=== PATIENT | male | born 1945 | race Hispanic/Latino ===

== ENCOUNTER → 2018-02-11 | Day surgery (SDC) | payer MEDICARE ==
[2018-02-10 16:11] LABS: BASOPHILS % 0.3 % (0.0-1.0); EOSINOPHILS # (AUTO) 0.3 (0.0-0.4); EOSINOPHILS % 5.4 % (0.0-6.0); HEMATOCRIT 26.5 % (38.2-49.6); LYMPHOCYTES # (AUTO) 1.2 (1.0-3.2); MEAN CORPUSCULAR HEMOGLOBIN 25.5 pg (28-32); MEAN CORPUSCULAR HGB CONC 30.2 g/dL (31-35); MEAN CORPUSCULAR VOLUME 84.4 fL (81-99); MONOCYTES # (AUTO) 0.5 (0.2-0.8); MONOCYTES % 8.3 % (4.4-11.3); NEUTROPHILS % 65.5 % (38.7-80.0); PLATELET COUNT 313 x10e3/uL (140-360); RED BLOOD COUNT 3.14 x10e6/uL (4.3-5.7)
[2018-02-10 16:26] LABS: ANION GAP 11.8 mmol/L (8-16); BLOOD UREA NITROGEN 16 mg/dL (7-26); BUN/CREATININE RATIO 15 (6-25); CALCIUM 8.6 mg/dL (8.4-10.2); CARBON DIOXIDE 24 mmol/L (22-29); CHLORIDE 107 mmol/L (98-107); CREATININE, SERUM 1.07 mg/dL (0.72-1.25); EST GLOMERULAR FILTRATION RATE > 60 ML/MIN (60-); GLUCOSE 103 mg/dL (74-118); POTASSIUM 3.8 mmol/L (3.5-5.1); SODIUM 139 mmol/L (136-145)
[~2018-02-11] MED LIST: ASPIR 8181 MG PO; CEFAZOLIN SOD 2 GM/D5W 50ML 50 ML IV ONE; DEXAMETHASONE SOD PHOS INJ 4 MG/ML VIAL ONE; EPHEDRINE SULFATE INJ 50 MG/10 ML SYR ONE; FENTANYL CITRATE/PF 100MCG/2 ML INJ ONE; FERROUS SULFAT325 MG PO; HEPARIN SOD (PORCINE) 1000 UNIT/ML SDV ONE; IRON PO; LIDOCAINE HCL 2% LOCAL INJ 5 ML SDV VIAL INJ ONE; MIDAZOLAM HCL 2 MG/2 ML VIAL ONE; MULTI-VITAMIN1 EACH PO; ONDANSETRON HCL INJ 2 MG/ML VIAL ONE; PROPOFOL IV EMULSION 10 MG/ML 20 ML VIAL ONE; SEVOFLURANE INHAL SOLN 250 ML PEN BTL ONE; SODIUM CHLORIDE 0.9% 100 ML 100 ML ONE; ULTRAM 50MG50 MG PO
[2018-02-11 11:18] LABS: HEMATOCRIT 24.9 % (38.2-49.6); HEMOGLOBIN 7.4 g/dL (14.0-18.0)
--- NOTE | 2018-02-11 14:01 | Operative Report ---
DATE OF PROCEDURE: February 11, 2018 PREOPERATIVE DIAGNOSIS: Metastatic carcinoma of colon. POSTOPERATIVE DIAGNOSIS: Metastatic carcinoma of colon. OPERATIVE PROCEDURE: Placement of left subclavian vein subcutaneous venous access port. ADULT BASIC EDUCATION INSTRUCTOR: None. ANESTHESIA: General. INDICATIONS AND FINDINGS: The patient is a 72-year-old male with previous colon resection who is now found to have metastatic colon cancer. He is to be treated with chemotherapy. At surgery, there were no abnormalities in the area of the port placement. Blood aspirated freely from the ports at the end of the procedure. The tip of the catheter was seen to be in the superior vena cava. TECHNIQUE: After adequate general anesthesia, with the patient in the supine position, the subclavian areas were prepped and draped in sterile fashion with Brad solution. Left subclavian vein was aspirated. A J-wire was introduced. It passed easily without resistance. Position of the wire in the superior vena cava was confirmed with fluoroscopy. Incision was then made in the deltopectoral groove with the wire exiting through the wound. A subcutaneous pocket was created in the inferior portion of the wound. Peel-away introducing sheath and dilator were passed over the guidewire. The catheter, which had been flushed with heparinized saline, was passed through the sheath and positioned in the superior vena cava under fluoroscopy. The catheter was aspirated and found to aspirate blood freely. It was then flushed with heparinized saline. The catheter was connected to the subcutaneous port, which had also been flushed with heparinized saline. The port was placed into the subcutaneous pocket and held in the pocket with sutures of 2-0 Ethibond. The entire port and catheter were inspected with fluoroscopy. There were no kinks, and the catheter tip was seen to be in the superior vena cava. The wound was inspected for hemostasis, which was seen to be adequate. The wound was then closed with 3-0 Vicryl in the subcutaneous tissue and 4-0 Vicryl subcuticular to the skin. Dermabond was applied to the wound. The port was accessed percutaneously with a Bear needle and found to aspirate blood freely. It was flushed with heparinized saline, and the needle was removed. Sterile dressing was applied. Patient tolerated the procedure well. Estimated blood loss was less than 5 mL. There were no complications. All counts were correct. Patient was taken to the recovery room in satisfactory condition. Job#: [id number] MH
--- NOTE | 2018-02-11 14:06 | Diagnostic Imaging Report ---
PROCEDURE: A single AP view of the chest. COMPARISON: Patients [facility], DX, CHEST SINGLE (PORTABLE), 01/27/2018, 11:52. INDICATIONS: POST VENOUS ACCESS PORT PLACEMENT, LINE PLACEMENT FINDINGS: Lines/tubes: Left upper chest Port-A-Cath distal tip projecting in the proximal SVC. Lungs: The lungs are well inflated and grossly clear. There is no evidence of pneumonia or pulmonary edema. Pleura: There is no pleural effusion or pneumothorax. Heart and mediastinum: Stable mild enlargement of the cardiac silhouette. Pulmonary vasculature is normal. CABG changes. Bones: No acute bony abnormality. Midline sternotomy wires. The most superior wire is fractured. IMPRESSION: 1. status post left upper chest Port-A-Cath placement with distal tip projecting in the proximal SVC. 2. Stable mild enlargement of the cardiac silhouette, without acute cardiopulmonary abnormalities. Elvis Valle M.D. Dictated by: Elvis Valle M.D. on 02/11/2018 at 14:11 Electronically approved by: Elvis Valle M.D. on 02/11/2018 at 14:11
--- NOTE | 2018-02-17 19:19 | Discharge Summary ---
PRINCIPAL DIAGNOSES 1. Acute kidney injury in setting of chronic kidney disease. 2. Elevated troponin. 3. Abnormal stress test. 4. Low vitamin B12. 5. Gastrointestinal bleed. 6. Coronary artery disease with history of coronary artery bypass graft. 7. Diabetes mellitus type 2. 8. Cigarette abuse. 9. Partial bowel obstruction. 10. Colon wall thickening, findings suggestive metastatic disease. SECONDARY DIAGNOSIS: Coronary artery disease. CHIEF COMPLAINT: Dizziness, lightheadedness, and abnormal labs. HISTORY OF PRESENT ILLNESS: This is a 72-year-old man with dizziness, lightheadedness and abnormal labs. Please refer to the H\T\P for further details. HOSPITAL COURSE: The patient found to have severe anemia with chronic findings and required blood cell transfusion. He had acute kidney injury in the setting of chronic kidney disease. He had elevated troponin and abnormal stress test. The patient received medication and medical management. He had low vitamin B12 and GI bleed. He has coronary artery disease with a history of bypass. He has diabetes mellitus type 2. He was managed with a diabetic diet. The patient had cigarette abuse and was counseled on cessation. He had partial bowel obstruction with chronic wall thickening with findings suggestive of metastatic disease. The patient will follow up with oncologist as an outpatient. The patient also underwent cardiac catheterization. No obvious irregularities noted in the vessels; however, there was no intervention at that time, recommended for medical management. DISCHARGE MEDICATIONS: Per electronic medical records. FOLLOWUP INSTRUCTIONS: Follow up with primary care physician in one week and follow up with oncology in one week. Follow up with cardiology in two weeks. YUE FOURNIER MD Job#: [id number]
== END | disposition home or self-care (01) ==
LOC: OR 10:28
PROVIDERS: ATTEND Surgery
DX: C18.9 Malignant neoplasm of colon, unspecified (principal); C79.9 Secondary malignant neoplasm of unspecified site; I25.810 Atherosclerosis of coronary artery bypass graft(s) without angina pectoris; N17.9 Acute kidney failure, unspecified; I25.2 Old myocardial infarction; D64.9 Anemia, unspecified; E11.22 Type 2 diabetes mellitus with diabetic chronic kidney disease; N18.9 Chronic kidney disease, unspecified; R94.39 Abnormal result of other cardiovascular function study; E53.8 Deficiency of other specified B group vitamins; K92.2 Gastrointestinal hemorrhage, unspecified; K56.600 Partial intestinal obstruction, unspecified as to cause; Z01.812 Encounter for preprocedural laboratory examination; Z79.82 Long term (current) use of aspirin; Z95.1 Presence of aortocoronary bypass graft; Z87.891 Personal history of nicotine dependence
CPT/HCPCS: 36415 ×2; 36561; 71045; 77001; 80048; 85014; 85018; 85025; C1751; J1100; J1644; J2001; J2250; J2405

== ENCOUNTER 2018-06-01 07:53 | Inpatient (IN) | payer MEDICARE ==
[2018-05-31 16:50] LABS: BASOPHILS % 0.3 % (0.0-1.0); EOSINOPHILS # (AUTO) 0.3 (0.0-0.4); EOSINOPHILS % 3.9 % (0.0-6.0); HEMATOCRIT 21.4 % (38.2-49.6); LYMPHOCYTES # (AUTO) 1.6 (1.0-3.2); LYMPHOCYTES % 17.8 % (18.0-39.1); MEAN CORPUSCULAR HEMOGLOBIN 19.9 pg (28-32); MEAN CORPUSCULAR HGB CONC 27.1 g/dL (31-35); MEAN CORPUSCULAR VOLUME 73.5 fL (81-99); MONOCYTES # (AUTO) 0.7 (0.2-0.8); MONOCYTES % 7.7 % (4.4-11.3); NEUTROPHILS # (AUTO) 6.1 (2.1-6.9); PLATELET COUNT 300 x10e3/uL (140-360); RED BLOOD COUNT 2.91 x10e6/uL (4.3-5.7); RED CELL DISTRIBUTION WIDTH 19.6 % (11.7-14.4)
[2018-05-31 17:06] LABS: HEMOGLOBIN 5.8 g/dL (14.0-18.0)
[2018-05-31 17:25] LABS: ALANINE AMINOTRANSFERASE 6 IU/L (0-55); ALBUMIN 3.4 g/dL (3.5-5.0); ALBUMIN/GLOBULIN RATIO 0.9 (0.8-2.0); ALKALINE PHOSPHATASE 82 IU/L (40-150); ANION GAP 12.3 mmol/L (8-16); BLOOD UREA NITROGEN 16 mg/dL (7-26); BUN/CREATININE RATIO 14 (6-25); CALCIUM 8.9 mg/dL (8.4-10.2); CARBON DIOXIDE 25 mmol/L (22-29); CHLORIDE 106 mmol/L (98-107); CREATININE, SERUM 1.17 mg/dL (0.72-1.25); EST GLOMERULAR FILTRATION RATE > 60 ML/MIN (60-); GLUCOSE 117 mg/dL (74-118); POTASSIUM 4.3 mmol/L (3.5-5.1); SODIUM 139 mmol/L (136-145)
[~2018-06-01] VITALS: Ht 175.3 cm; Wt 78.5 kg
[2018-06-01] VITALS (16 sets, daily range): BP systolic 122–139; BP diastolic 71–89
[~2018-06-01 07:53] MED LIST changes: -CEFAZOLIN SOD 2 GM/D5W 50ML 50 ML IV ONE; -DEXAMETHASONE SOD PHOS INJ 4 MG/ML VIAL ONE; -EPHEDRINE SULFATE INJ 50 MG/10 ML SYR ONE; -FENTANYL CITRATE/PF 100MCG/2 ML INJ ONE; -HEPARIN SOD (PORCINE) 1000 UNIT/ML SDV ONE; -LIDOCAINE HCL 2% LOCAL INJ 5 ML SDV VIAL INJ ONE; -MIDAZOLAM HCL 2 MG/2 ML VIAL ONE; -ONDANSETRON HCL INJ 2 MG/ML VIAL ONE; -PROPOFOL IV EMULSION 10 MG/ML 20 ML VIAL ONE; -SEVOFLURANE INHAL SOLN 250 ML PEN BTL ONE; -SODIUM CHLORIDE 0.9% 100 ML 100 ML ONE
--- OUTSIDE RECORDS SUMMARY | 2018-06-01 07:56 | XMS REPORT | Continuity of Care Document ---
Author Author [facility] Interface Address Unknown Phone Unavailable Problems Problem Status Onset Date Classification Date Reported Comments Source DX: E78.5=HYPERLIPIDEMIA, UNSPECIFIED/G6 Active 05/06/2018 [facility] CRITICAL LOWER LIMB ISCHEMIA Active 02/15/2017 [facility] PERIPHERAL ARTERY DISEASE Active 02/15/2017 [facility] Final: Peripheral vascular disease, unspecified 02/19/2017 [facility] Acute myocardial infarction Resolved Problem 02/19/2017 [facility] CAD (<span ID="[id number]">Confirmed</span>) Resolved Problem 02/19/2017 [facility] CAD (<span ID="[id number]">Confirmed</span>) Resolved Problem 02/19/2017 [facility] CABG x 4 - Coronary artery bypass grafts x 4<sup>1</sup> Active Problem 02/19/2017 PER PATIENT IN 2007 [facility] CAD - Coronary artery disease Active Problem 02/19/2017 [facility] Chest pain Active Problem 02/19/2017 [facility] CHF - Congestive heart failure Active Problem 02/19/2017 [facility] Current smoker<sup>2</sup> Active Problem 02/19/2017 1 PACK PER DAY [facility] H/O: myocardial infarct at greater than 60<sup>3</sup> Active Problem 02/19/20172007 [facility] History of hypercholesterolemia Active Problem 02/19/2017 [facility] Chronic hypertension Resolved Problem 02/19/2017 [facility] Cancer of colon Resolved Problem 02/19/2017 [facility] Noncompliance: medication regimen<sup>4</sup> Active Problem 02/19/2017 STOP TAKING MEDICATIONS 9 MONTHS AGO [facility] OTHER DISORDER OF CIRCULATORY SYSTEM Active [facility] PERIPHERAL VASCULAR DISEASE, UNSPECIFIED Active [facility] Medications Medication Details Route Status Patient Instructions Ordering Provider Order Date Source clopidogrel 75 mg oral tablet 75 mg=1 tab, PO, Daily, # 90 tab, 3 Refill(s), called to pharmacy Active 02/16/2017 [facility] atorvastatin 10 mg oral tablet 20 mg=2 tab, PO, Bedtime, 0 Refill(s) Active 02/16/2017 [facility] aspirin 81 mg tablet, enteric coated 81 mg=1 tab, PO, Daily, 0 Refill(s) Active 02/16/2017 [facility] metoprolol 25 mg oral tablet, extended release 25 mg=1 tab, PO, Daily, 0 Refill(s) Active 02/16/2017 [facility] doxycycline hyclate 100 MG Oral Tablet 100 mg=1 tab, PO, Q12H, X 14 day, # 28 tab, 0 Refill(s), called to pharmacy Active 02/16/2017 [facility] metoprolol extended release 25 mg, 1 tab, Route: PO, Drug form: ERTAB, Daily, Start date: 02/16/17 9:00:00 CDT, Duration: 30 day, Stop date: 03/17/17 9:00:00 CDTNotes: (Same as: Toprol XL) Do Not Crush Inactive 02/16/2017 [facility] multivitamin 1 tab, Route: PO, Drug Form: TAB, Dosing Weight 71.42, kg, Daily, Start date: 02/16/17 9:00:00 CDT, Duration: 30 day, Stop date: 03/17/17 9:00:00 CDTNotes: (Same as:One Tab Daily, Tab-A-Darlene + Beta C arotene) Give with food. Inactive 02/16/2017 [facility] Plavix 75 mg, 1 tab, Route: PO, Drug form: TAB, Daily, Dosing Weight 71.42, kg, Start date: 02/16/17 9:00:00 CDT, Duration: 30 day, Stop date: 03/17/17 9:00:00 CDTNotes: (Same As: Plavix) Inactive 02/16/2017 [facility] Aspirin 81 mg, 1 tab, Route: PO, Drug form: ECTAB, Daily, Dosing Weight 71.42, kg, Start date: 02/16/17 9:00:00 CDT, Duration: 30 day, Stop date: 03/17/17 9:00:00 CDTNotes: Do not crush or chew. (Same As: Ecotrin) Inactive 02/16/2017 [facility] carvedilol 3.125 mg, 1 tab, Route: PO, Drug form: TAB, Q12H, Dosing Weight 71.42, kg, Start date: 02/15/17 21:00:00 CDT, Duration: 30 day, Stop date: 03/17/17 9:00:00 CDTNotes: Give with food. (Same As: Coreg) Inactive 02/16/2017 [facility] Lipitor 20 mg, 2 tab, Route: PO, Drug form: TAB, Bedtime, Dosing Weight 71.42, kg, Start date: 02/15/17 21:00:00 CDT, Duration: 30 day, Stop date: 03/16/17 21:00:00 CDTNotes: (Same As: Lipitor) No Longer Active 02/16/2017 [facility] hydrALAZINE 10 mg, 0.5 mL, Route: IV, Drug form: INJ, Q4H, PRN Elevated BP, Start date: 02/15/17 17:12:00 CDT, Duration: 30 day, Stop date: 03/17/17 17:11:00 CDTNotes: (Same as: Apresoline) Push over 5 minutes No Longer Active 02/15/2017 [facility] Labetalol 5 mg, Route: IVP, Drug form: INJ, Q3H, Dosing Weight 71.42, kg, Start date: 02/15/17 17:00:00 CDT, Duration: 30 day, Stop date: 03/17/17 14:00:00 CDT Inactive 02/15/2017 [facility] Vancomycin 1,000 mg, Route: IVPB, [id number], Dosing Weight 71.42, kg, Start date: 02/15/17 16:00:00 CDT, Duration: 3 day, Stop date: 02/18/17 4:00:00 CDT, ABX Indication: Bone/Joint InfectionNotes: TIME CRITICAL MEDICATION (Same As: Vancocin) Infusion rate 2001 mg: infuse over 2.5 hours MEDICATION WASTE Product Size: 1000 mg Product Wasted: ___ mg No Longer Active 02/15/2017 [facility] Zosyn 3.375 gm, Route: IVPB, [id number], Dosing Weight 71.42, kg, Start date: 02/15/17 16:00:00 CDT, Duration: 3 day, Stop date: 02/18/17 8:00:00 CDT, ABX Indication: Bone/Joint InfectionNotes: (Same as: Zosyn) Dosing based on Piperacillin component MEDICATION WASTE Product Size: 3375 mg Product Wasted: ___ mg No Longer Active 02/15/2017 [facility] Acetaminophen 325 MG / Hydrocodone Bitartrate 5 MG Oral Tablet 1 tab, Route: PO, Drug Form: TAB, Dosing Weight 71.42, kg, Q4H, PRN Pain Score 4-6, Start date: 02/15/17 15:18:00 CDT, Duration: 30 day, Stop date: 03/17/17 15:17:00 CDTNotes: (Same as: [place] 325/5) Do not exceed 4gm/day of acetaminophen. No Longer Active 02/15/2017 [facility] Morphine 4 mg, 1 mL, Route: IVP, Drug form: SOLN, Q2H, Dosing Weight 71.42, kg, PRN Pain Score 7-10, Start date: 02/15/17 15:18:00 CDT, Duration: 30 day, Stop date: 03/17/17 15:17:00 CDTNotes: (Same as:MORPhine Sulfate) No Longer Active 02/15/2017 [facility] Ondansetron 4 mg, 1 tab, Route: PO, Drug form: TAB, Q8H, Dosing Weight 71.42, kg, PRN Nausea & Vomiting, Start date: 02/15/17 15:18:00 CDT, Duration: 30 day, Stop date: 03/17/17 15:17:00 CDTNotes: (Same as: Zofran) No Longer Active 02/15/2017 [facility] Temazepam 15 mg, 1 cap, Route: PO, Drug form: CAP, Bedtime, Dosing Weight 71.42, kg, PRN Insomnia, Start date: 02/15/17 15:18:00 CDT, Duration: 30 day, Stop date: 03/17/17 15:17:00 CDTNotes: (Same As: Restoril) No Longer Active 02/15/2017 [facility] sodium chloride 0.9% 1000 ml INJ 750 mL 750 mL, Rate: 75 ml/hr, Infuse over: 10 hr, Route: IV, Dosing Weight 71.42 kg, Total Volume: 750, Start date: 02/15/17 15:18:00 CDT, Duration: 10 hr, Stop date: 02/16/17 1:17:00 CDT No Longer Active 02/15/2017 [facility] multivitamin PO, Daily, 0 Refill(s) Active 02/15/2017 [facility] sodium chloride 0.9% 1000 ml INJ 1,000 mL 1,000 mL, Rate: 50 ml/hr, Infuse over: 20 hr, Route: IV, Dosing Weight 71.42 kg, Total Volume: 1,000, Start date: 02/15/17 12:48:00 CDT, Duration: 30 day, Stop date: 03/17/17 12:47:00 CDT No Longer Active 02/15/2017 [facility] Allergies, Adverse Reactions, Alerts Substance Category Reaction Severity Reaction type Status Date Reported Comments Source lisinopril Assertion Drug allergy Active [facility] Immunizations Immunization Date Given Site Status Last Updated Comments Source Results Order Name Results Value Reference Range Date Interpretation Comments Source Abdomen/Pelvis w IV contrast CT Abdomen/Pelvis w IV contrast CT EXAM: CT abdomen and pelvis HISTORY: Colon cancer with abdominal metastasis, restaging. COMPARISON: None TECHNIQUE: Axial images of the abdomen and pelvis with sagittal and coronal reformats. 100 mL Omnipaque IV contrast and 50 mL Omnipaque oral contrast. DLP: 547 CT imaging performed at this location utilizes radiation dose optimization techniques which include one or more of the following: -Automated exposure control -Adjustment of the mA and/or kV according to patient size -Use of iterative reconstruction technique FINDINGS: Liver: Fatty change. Tiny calcified granuloma right lobe. Tiny hypodensity left hepatic lobe, series 3, image 22 may be a cyst. Pancreas: Several punctate calcifications scattered in the pancreas with mild parenchymal atrophy. No duct dilation. Spleen: Unremarkable. Kidneys: Small probable cyst right kidney. The left kidney is unremarkable. Adrenal glands: Unremarkable. Gallbladder: Small polyp versus gallstone. Bladder: Appears intact. GI tract: Colorectal anastomosis with circumferential soft tissue mass measuring approximately 4.8 x 4 cm adjacent to the anastomosis to the left of midline in the pelvis. The remaining colon appears resected. Mildly distended small bowel loop right lower abdomen. Peritoneum and retroperitoneum: A few small lymph nodes in the mesentery adjacent to the colorectal anastomosis. 7 mm soft tissue nodule anterior peritoneum, series 3, image 51. No free fluid. Atherosclerosis aortoiliac system with stent left common iliac artery. Bones: Moderate spondylosis thoracolumbar spine. IMPRESSION: No prior study available for comparison 1. Colorectal anastomosis with soft tissue mass adjacent to the anastomosis compatible with local tumor recurrence. Few small lymph nodes in the adjacent mesentery and anterior peritoneum are indeterminate for reactive nodes versus metastasis. 2. Mildly distended small bowel loop right lower abdomen, a developing small bowel obstruction is not excluded. 3. Fatty liver. 4. Changes of chronic calcific pancreatitis. SL: [id number] 05/08/2018 - - Read by: Nasir Gomez MD Dictated Date/time: 05/10/18 08:32 Electronically Signed by: Nasir Gomez MD 05/10/18 09:07 FINAL REPORT [facility] ELECTROLYTES Chloride Lvl 105 meq/L 95 - 109 02/16/2017 [facility] ELECTROLYTES Potassium Lvl 4.0 meq/L 3.5 - 5.1 02/16/2017 [facility] ELECTROLYTES eGFR 85 mL/min/1.73m2 02/16/2017 Result Comment: The eGFR is calculated using the CKD-EPI formula. In most young, healthy individuals the eGFR will be >90 mL/min/1.73m2. The eGFR declines with age. An eGFR of 60-89 may be normal in some populations, particularly the elderly, for whom the CKD-EPI formula has not been extensively validated. Use of the eGFR is not recommended in the following populations: Individuals with unstable creatinine concentrations, including patients and those with serious co-morbid conditions. Patients with extremes in muscle mass or diet. The data above are obtained from the National Kidney Disease Education Program (NKDEP) which additionally recommends that when the eGFR is used in patients with extremes of body mass index for purposes of drug dosing, the eGFR should be multiplied by the estimated BMI. [facility] ELECTROLYTES Calcium Lvl 8.1 mg/dL 8.5 - 10.5 02/16/2017 [facility] ELECTROLYTES CO2 28 meq/L 24 - 32 02/16/2017 [facility] ELECTROLYTES Glucose Lvl 84 mg/dL 70 - 99 02/16/2017 [facility] ELECTROLYTES Creatinine Lvl 0.89 mg/dL 0.50 - 1.40 02/16/2017 [facility] ELECTROLYTES BUN 7 mg/dL 7 - 22 02/16/2017 [facility] ELECTROLYTES Sodium Lvl 139 meq/L 135 - 145 02/16/2017 [facility] ELECTROLYTES AGAP 10.0 meq/L 10.0 - 20.0 02/16/2017 [facility] HEMATOLOGY Large Plt rare 02/16/2017 [facility] HEMATOLOGY Eosinophils 5.5 % 0.0 - 4.0 02/16/2017 [facility] HEMATOLOGY Segs 67.4 % 45.0 - 75.0 02/16/2017 [facility] HEMATOLOGY Monocytes 7.1 % 2.0 - 12.0 02/16/2017 [facility] HEMATOLOGY Basophils 0.6 % 0.0 - 1.0 02/16/2017 [facility] HEMATOLOGY Lymphocytes 19.4 % 20.0 - 40.0 02/16/2017 [facility] HEMATOLOGY Microcyte 1+ *ABN* (02/16/17 4:07 AM) None Seen 02/16/2017 [facility] HEMATOLOGY Monocytes # 0.5 K/CMM 0.0 - 0.8 02/16/2017 [facility] HEMATOLOGY Eosinophils # 0.4 K/CMM 0.0 - 0.5 02/16/[address] [facility] [place] Segs-Bands # 4.8 K/CMM 1.5 - 8.1 02/16/[address] [facility] [place] Lymphocytes # 1.4 K/CMM 1.0 - 5.5 02/16/[address] [facility] [place] RBC 3.72 M/CMM 4.70 - 6.10 02/16/2017 [facility] HEMATOLOGY WBC 7.1 K/CMM 3.7 - 10.4 02/16/2017 [facility] HEMATOLOGY Hct 27.9 % 42.0 - 54.0 02/16/[address] [facility] [place] Hgb 8.7 g/dL 14.0 - 18.0 02/16/[address] [facility] [place] MCHC 31.0 g/dL 32.0 - 36.0 02/16/[address] [facility] [place] MCH 23.3 pg 27.0 - 31.0 02/16/2017 [facility] HEMATOLOGY MCV 75.1 fL 80.0 - 94.0 02/16/2017 [facility] HEMATOLOGY Platelet 285 K/CMM 133 - 450 02/16/[address] [facility] [place] RDW 24.9 % 11.5 - 14.5 02/16/[address] [facility] [place] MPV 8.5 fL 7.4 - 10.4 02/16/2017 [facility] Vital Signs Vital Sign Value Date Comments Source Respitory Rate 18 02/16/2017 [facility] Heart Rate 62 02/16/2017 [facility] Temperature Oral (F) 98.2 F 02/16/2017 [facility] Systolic (mm Hg) 147 02/16/2017 [facility] Diastolic (mm Hg) 81 02/16/2017 [facility] Systolic (mm Hg) 151 02/16/2017 [facility] Diastolic (mm Hg) 81 02/16/2017 [facility] Respitory Rate 18 02/16/2017 [facility] Temperature Oral (F) 98.1 F 02/16/2017 [facility] Heart Rate 66 02/16/2017 [facility] Respitory Rate 18 02/16/2017 [facility] Systolic (mm Hg) 151 02/16/2017 [facility] Diastolic (mm Hg) 77 02/16/2017 [facility] Heart Rate 58 02/16/2017 [facility] Temperature Oral (F) 98.0 F 02/16/2017 [facility] BMI Calculated 23.94 02/15/2017 [facility] Height 172.72 cm 02/15/2017 [facility] Weight 71.42 02/15/2017 [facility] Encounters Location Location Details Encounter Type Encounter Number Reason For Visit Attending Provider ADM Date DC Date Status Source [facility] Inpatient [id number] Jose Chantal 02/15/2017 02/16/2017 [facility] Procedures Procedure Code Date Perfomer Comments Source Total removal of colon [id number] 01/14/2017 [facility] Bypass of carotid artery to carotid artery using vein graft [id number] 06/05/2008 [facility]
[2018-06-01] MEDS ORDERED: SODIUM CHLORIDE 0.9% 250ML 0 ML ONE (08:09)
[2018-06-01] MEDS ORDERED: CEFOXITIN SOD 1 GM VIAL ONE (08:09)
[2018-06-01] MEDS ORDERED: IOPAMIDOL 610MG/1ML 300 MG/ML VIAL IV ONE (09:53)
[2018-06-01] MEDS ORDERED: BUPIVACAINE HCL 0.5% INJ 30 ML VIAL INJ ONE (10:28)
--- NOTE | 2018-06-01 12:59 | Operative Report ---
DATE OF PROCEDURE: June 01, 2018 SERVICE: Urology. ATTENDING: Dr. Bacilio Díaz PREOPERATIVE DIAGNOSES 1. Recurrent colon cancer. 2. BPH with obstruction. POSTOPERATIVE DIAGNOSES 1. Recurrent colon cancer. 2. BPH with obstruction. OPERATION PERFORMED: 1. Cystoscopy and bilateral retrograde pyelograms under fluoroscopic control. 2. Placement of bilateral ureteral catheters, open-ended device. 3. Interpretation of x-ray. Radiologist not present. 4. Supervision of fluoroscopy, radiologist not present. SHOPPING INSPECTOR: None. ANESTHESIA: General. CLINICAL INDICATION NOTE: This is a 72-year-old patient that came for surgery on the recurrent colon cancer. In the past, he did have surgery on the right side of the colon. The patient has symptoms of prostatism. The plan is to place ureteral catheters bilaterally before the procedure by Dr. Díaz. DESCRIPTION OF PROCEDURE AND FINDINGS: After proper level of anesthesia was achieved, the patient was placed in lithotomy position, prepped and draped in sterile fashion. Urethra inspected and appeared to be unremarkable. Bladder outlet was obstructed by enlarged prostate. Bladder is quite trabeculated. Both ureteral orifices were identified. No tumor or foreign body seen. Open-end catheters were inserted bilaterally, and retrograde pyelograms demonstrated some kinking of the upper ureter on the right side. However, no hydro and the drainage is prompt from both sides. The proper position of the ureteral catheters, which were repositioned, was verified by x-ray. Bladder was then irrigated. The scope was removed. An 18-Urdu Miles catheter was inserted, and both ureteral catheters were inserted into the Miles catheter. Rectal exam revealed an enlarged prostate, no masses. Patient tolerated the procedure well. Job#: [id number]
[2018-06-01] MEDS: DEXTROSE 5%/LACTATED RINGERS 1,000 ML IV SCH ×2 (13:37→18:46)
[2018-06-01] MEDS ORDERED: DIPHENHYDRAMINE HCL INJ 50 MG/ML VIAL IM PRN (13:45)
[2018-06-01] MEDS ORDERED: KETOROLAC TROMETHAMINE 30 MG/ML VIAL IV PRN (13:45)
[2018-06-01] MEDS ORDERED: HYDROMORPHONE 0.2MG/ML-SOD CHL 30ML PCA SYRINGE IV PRN (13:45)
[2018-06-01] MEDS ORDERED: NALOXONE HCL INJ 0.4 MG/ML AMP IV PRN (13:45)
--- NOTE | 2018-06-01 15:10 | Operative Report ---
DATE OF PROCEDURE: June 01, 2018 PREOPERATIVE DIAGNOSIS: Recurrent carcinoma of the colon. POSTOPERATIVE DIAGNOSIS: Recurrent carcinoma of the colon with ileocolic stricture and multiple intra-abdominal and peritoneal masses and small-bowel perforation times 2. PROCEDURES 1. Exploratory laparotomy. 2. Lysis of adhesions. 3. Small-bowel resection x3. 4. Creation of loop ileostomy. REAL ESTATE ASSOCIATE: None. ANESTHESIA: General. INDICATIONS AND FINDINGS: The patient is a 72-year-old male with history of carcinoma of the colon. He has been treated with chemotherapy and had an area where there appeared to be a stricture. It was found to be at the ileocolic anastomosis. At surgery, he was found to have multiple areas of tumor recurrence with small bowel adherent to these areas. Once they were freed, there was perforation of the small bowel requiring resection. There was a tight stricture at the ileocolic anastomosis with tumor infiltrating into this area and into the retroperitoneum and pelvic sidewalls such that it could not be resected. TECHNIQUE: After adequate general endotracheal anesthesia, with the patient in the supine position, the patient first had cystoscopy and placement of ureteral stents by Dr. Aguilar. The abdomen and perineum were prepped and draped in sterile fashion with Betadine solution to the perineum and ChloraPrep to the abdomen. The patient was in low stirrups. Initially, laparoscopy was done. Incision was made in the left side of the abdomen. The abdominal wall was elevated. A Veress needle was introduced. Pneumoperitoneum was then created. A 5-mm trocar and cannula were passed through this wound. Initial laparoscopy revealed some adhesions but no obvious tumor. The laparoscope was removed. Cannula was removed. Through a midline incision, the peritoneal cavity was entered. Initial exploration revealed areas of hard mass in the left lower abdomen. In the small bowel, there were area of mild dilation, and the small bowel was examined. There were multiple tumors, which were adherent to the small bowel and also in the retroperitoneum. Small bowel was freed from the adhesions. As some of the areas of small-bowel tumor were freed, there were found to be perforations of small bowel. Two areas developed perforation initially, and these areas were resected. The bowel proximal and distal to the perforation was divided with a CINDY stapler. Mesentery was divided with a LigaSure device. Anastomosis was made for each area with a CINDY stapler and TL-60 stapler. Each of these areas were far apart, and the blood supply was not compromised. There were several areas where there was adherent tumor in the pelvis at the previous ileocolic anastomosis. The bowel was noted to be dilated. As this was examined and dissected free, the bowel was opened. There was a large tumor on the small bowel where the anastomosis was, and there was also tumor around the anastomosis infiltrating into the pelvic sidewall. Exam through the rectum revealed a tight stricture at the anastomosis. A large tumor where there was a perforation on the ileocolic anastomosis was excised. This blind end of the small bowel was closed with a TL-60 stapler. There was one area where there was another perforation where there was no tumor, and this was closed in 2 layers with 3-0 Vicryl and 3-0 silk. Proximal this area, an ileostomy was then created. A pilot point of skin was removed from the right lower quadrant and carried down through subcutaneous tissue. The fascia was opened in a cruciate fashion. The peritoneal cavity was entered. A loop of small bowel was then brought up through here to be matured as a loop ileostomy. The peritoneal cavity was irrigated with a large volume of warm saline and inspected for hemostasis, which was seen to be adequate. Midline fascia was then closed with a running suture of #1 PDS to the fascia. The subcutaneous tissue was irrigated with saline. The skin was closed with jessie. The small bowel was then opened to mature the ileostomy. A suture was taken through the skin through the full thickness of the small bowel with interrupted sutures of 3-0 Vicryl. Ileostomy appliance was then applied. Sterile dressing was applied to the midline wound. The patient tolerated the procedure well. Estimated blood loss was 200 mL. There were no complications. The patient had an incorrect count with 1 clamp missing. An x-ray was done to confirm it was not left in the abdomen. The patient, after it was done, was taken to the recovery room in satisfactory condition. Job#: [id number]
--- NOTE | 2018-06-01 15:40 | NUR ---
RECVD PT FROM PACU VIA BED. OX2-3. C/O PAIN AND IS USING DOUGH BRAKER DILAUDID. ASSESSMENT COMPLETED AND RECORDED. PT AND FAMILY FREQUENT USE OF PROFANITY AND VERBALIZES GENERAL ANXIETY WITH CURRENT CONDITION.
[2018-06-01] MEDS ORDERED: DEXAMETHASONE SOD PHOS INJ 4 MG/ML VIAL ONE (17:36)
[2018-06-01] MEDS ORDERED: ROCURONIUM BROMIDE 10 MG/ML 5ML VIAL ONE (17:36)
[2018-06-01] MEDS ORDERED: GLYCOPYRROLATE INJ 1MG/ 5 ML SYR ONE (17:36)
[2018-06-01] MEDS ORDERED: LIDOCAINE HCL 2% LOCAL INJ 5 ML SDV VIAL INJ ONE (17:36)
[2018-06-01] MEDS ORDERED: EPHEDRINE SULFATE INJ 50 MG/10 ML SYR ONE (17:36)
[2018-06-01] MEDS ORDERED: PROPOFOL IV EMULSION 10 MG/ML 20 ML VIAL ONE (17:36)
[2018-06-01] MEDS ORDERED: ACETAMINOPHEN 1000 MG/100 ML IV ONE (17:36)
[2018-06-01] MEDS ORDERED: ONDANSETRON HCL INJ 2 MG/ML VIAL ONE (17:36)
[2018-06-01] MEDS ORDERED: NEOSTIGMINE 5 MG/5ML SYR ONE (17:36)
[2018-06-01] MEDS ORDERED: SEVOFLURANE INHAL SOLN 250 ML PEN BTL ONE (17:36)
[2018-06-01] MEDS ORDERED: MIDAZOLAM HCL 2 MG/2 ML VIAL ONE (17:59)
[2018-06-01] MEDS ORDERED: FENTANYL CITRATE/PF 100MCG/2 ML INJ ONE (17:59)
[2018-06-01] MEDS ORDERED: MORPHINE SULFATE INJ 10 MG/ML ONE (17:59)
[2018-06-01] MEDS ORDERED: CEFOXITIN 1GM/ NS 50ML 50 ML IV SCH (18:00)
[2018-06-01] MEDS: CEFOXITIN SOD 1 GM VIAL IV SCH (18:09)
[2018-06-02] VITALS (26 sets, daily range): BP systolic 97–133; BP diastolic 65–90
[2018-06-02] MEDS: CEFOXITIN SOD 1 GM VIAL IV SCH ×5 (00:58→23:53)
[2018-06-02 05:00] LABS: BASOPHILS % 0.1 % (0.0-1.0); HEMATOCRIT 27.1 % (38.2-49.6); HEMOGLOBIN 7.6 g/dL (14.0-18.0); LYMPHOCYTES # (AUTO) 1.3 (1.0-3.2); MEAN CORPUSCULAR HEMOGLOBIN 21.7 pg (28-32); MONOCYTES % 5.4 % (4.4-11.3); NEUTROPHILS # (AUTO) 15.7 (2.1-6.9); NEUTROPHILS % 87.1 % (38.7-80.0); PLATELET COUNT 278 x10e3/uL (140-360); RED BLOOD COUNT 3.51 x10e6/uL (4.3-5.7); RED CELL DISTRIBUTION WIDTH 21.1 % (11.7-14.4)
[2018-06-02] MEDS: DEXTROSE 5%/LACTATED RINGERS 1,000 ML IV SCH ×3 (05:21→21:37)
[2018-06-02 05:34] LABS: MEAN CORPUSCULAR VOLUME 77.2 fL (81-99)
[2018-06-02 05:39] LABS: CALCIUM 8.2 mg/dL (8.4-10.2); CREATININE, SERUM 1.57 mg/dL (0.72-1.25)
--- NOTE | 2018-06-02 07:00 | NUR ---
RECVD BEDSIDE REPORT. ASSESSMENT COMPLETED AND RECORDED. VSS AND RECORDED. STATES PAIN IS CONTROLLED WITH CURRENT TX. NO FAMILY AT BEDSIDE. PT VERBALIZES CONSENT AND UNDERSTANDING OF CURRENT CARE. AM CARE COMPLETED.
[2018-06-02 07:22] LABS: ELLIPTOCYTE, RBC SLIGHT; HYPOCHROMASIA MODERATE; MICROCYTOSIS SLIGHT; OVALOCYTES FEW; PLATELET ESTIMATE ADEQUATE; RBC MORPHOLOGY COMMENT ABNORMAL
[2018-06-02 07:23] LABS: PLATELET MORPHOLOGY COMMENT FEW LARGE
--- NOTE | 2018-06-02 09:15 | NUR ---
PT OOB TO CHAIR. LINEN CHANGED. FAMILY AT BEDSIDE. ON RA TOLERATING WELL.
--- NOTE | 2018-06-02 12:36 | NUR ---
Business Continuity Management Director to bedside to discuss plan of care with patient/family. CM/SW role and care transitions discussed. Anticipated discharge plan discussed along with duration of care. CM/SW discussed patients right to make decisions in care. CM/SW work hours given. Patient lives: INDEPENDENTLY AT HOME WITH AMMON Admit/Transfer: ER POA/Emergency contact: AMMON JERNIGAN [phone] Current/Previous Home Health: NONE PCP/Follow-up Care: NA Current/Previous DME: NONE Other Services: NONE Employment Status: EMPLOYED Areas of Concerns: NONE AT THIS TIME Referral Needs: TBA Education Needs: NONE AT THIS TIME IMM/DO given and signed (if applicable): NONE Goal for discharge: PATIENT GOAL TO DISCHARGE HOME WITH NO NEEDS CM left business card at the bedside with contact information. Name and number was also written on the patients whiteboard. Patient verbalized understanding of discussion. CM will follow-up with ongoing discharge and transition of care needs.
--- NOTE | 2018-06-02 12:53 | NUR ---
PT RETURNED TO BED. DENIES ANY CHANGES IN CONDITION. TOLERATING CURRENT TREATMENT WELL. FAMILY AT BEDSIDE.
--- NOTE | 2018-06-02 16:10 | NUR ---
DR AGUIRRE MAKING ROUNDS AND UPDATED ORDERS RECVD AND BEING COMPLETED. PT STATES OK TO GO TO FLOOR WITH NO TELEMETRY. KEEP FALK IN UNTIL DR RITA ALEXIS. PT AND FAMILY INFORMED, NO ROOM AVAILABLE AT THIS TIME.
--- NOTE | 2018-06-02 18:31 | NUR ---
DR FOURNIER CALLED TO NOTIFY OF CONSULT. SPOKE WITH DR SALINAS REGARDING PT STATUS.
--- NOTE | 2018-06-02 19:30 | NUR ---
Received patient calm in bed, hemodynamically stable. On a [employer]ODUCT MANAG[employer] pump, Dilaudid for pain, currently a pain score of zero. No complaints raised, due for transfer to [facility] once bed is available
--- NOTE | 2018-06-02 23:25 | NUR ---
Patient calmly asleep, hemodynamically stable
[2018-06-03] VITALS (40 sets, daily range): BP systolic 112–164; BP diastolic 66–93
--- NOTE | 2018-06-03 02:00 | NUR ---
Patient hemodynamically stable, calmly asleep in bed, no complaints raised.
--- NOTE | 2018-06-03 05:00 | NUR ---
Patient repositioned, dirty linens change, settled calmly in bed
[2018-06-03 05:04] LABS: HEMATOCRIT 22.6 % (38.2-49.6); MEAN CORPUSCULAR HGB CONC 28.8 g/dL (31-35); MEAN CORPUSCULAR VOLUME 76.6 fL (81-99); PLATELET COUNT 231 x10e3/uL (140-360); RED BLOOD COUNT 2.95 x10e6/uL (4.3-5.7); RED CELL DISTRIBUTION WIDTH 21.9 % (11.7-14.4)
[2018-06-03 05:16] LABS: HEMOGLOBIN 6.5 g/dL (14.0-18.0)
[2018-06-03 05:22] LABS: ANION GAP 11.7 mmol/L (8-16); CALCIUM 8.6 mg/dL (8.4-10.2); CREATININE, SERUM 1.36 mg/dL (0.72-1.25); POTASSIUM 4.7 mmol/L (3.5-5.1)
[2018-06-03] MEDS: DEXTROSE 5%/LACTATED RINGERS 1,000 ML IV SCH ×2 (05:37→14:28)
[2018-06-03] MEDS: CEFOXITIN SOD 1 GM VIAL IV SCH ×3 (06:00→18:19)
--- NOTE | 2018-06-03 06:00 | NUR ---
Received critical results on patient Hb level of 6.5, results called in to Dr Díaz, ordered for type and cross match 2 units of PRBC
--- NOTE | 2018-06-03 07:00 | NUR ---
handed over patient hemodynamically stable
--- NOTE | 2018-06-03 07:19 | NUR ---
Eleonora Zafar and Lauren to bedside.
[2018-06-03] MEDS ORDERED: SODIUM CHLORIDE 0.9% 250ML 250 ML IV ONE (07:30)
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
[2018-06-03] MEDS: PANTOPRAZOLE 40 MG 10ML VIAL IV SCH ×2 (09:54→22:31)
--- NOTE | 2018-06-03 10:37 | NUR ---
2nd unit of PRBCs infusing; patient with no present concerns.
[2018-06-03] MEDS ORDERED: HYDROMORPHONE 0.2MG/ML-SOD CHL 30ML PCA SYRINGE IV PRN (12:45)
--- NOTE | 2018-06-03 14:46 | NUR ---
Nutrition Screen Note RD Recommendation for Physician: -Rec advancing to ADA/ GI soft diet as medically appropriate -Encourage PO and hydration -If PO <50% on regular diet, consider Glucerna BID Plan of Care: RD following, monitoring for tolerance and adequacy Nutrition reason for involvement: RN consult- no reason stated Primary Diagnose(s): 1. Colon cancer: Status post small-bowel resection and ileostomy placement. 2. Severe microcytic anemia. 3. Acute kidney injury likely secondary to acute tubular necrosis. PMH: CKD, GI bleed, CAD, DM, partial bowel obstruction, PVD, anemia, colon cancer dx in 2016 Ht: 69in Wt: 178lb 06/02 183lb 01/2018 BMI: 26.3kg/m2 IBW: 160lb RD Assessment: (06/03) Chart reviewed. Labs and meds reviewed. 72yo M, who is admitted for elective colon resection in the setting of colon cancer. He underwent the procedure with small-bowel resection and ileostomy on 06/01. Diet has been advanced to clear liquid. During my visit, pr reports eating about the same before coming into the hospital. Pt denies any N/V or abdominal pain at this time. Pt reports of ~5lb weight loss in 4 months, which is ~2.7% in 4 months (insignificant). Pt denies any chewing or swallowing difficulty. Will continue to monitor and follow. Current Diet: Clear liquid diet Malnutrition Evaluation (06/03/18) The patient does not meet criteria for a specified degree of malnutrition at this time. Will re-evaluate at follow-up as appropriate. Weight loss: ~5lb weight loss in 4 months, which is ~2.7% in 4 months (insignificant) Diet Education Needs Assessment: Diet education not indicated. Nutrition Care Level: low Signed: Smiley Bacon, MS, RD, LD
--- NOTE | 2018-06-03 15:39 | NUR ---
Patient sitting up in chair conversing with son after 3rd unit of PRBCs transfused.
[2018-06-03 16:16] LABS: HEMATOCRIT 33.5 % (38.2-49.6); HEMOGLOBIN 10.3 g/dL (14.0-18.0)
--- NOTE | 2018-06-03 16:30 | NUR ---
Patient to Room 199 via wheel chair.
--- NOTE | 2018-06-03 17:45 | NUR ---
RECEIVED PATIENT FROM ICU, PATIENT TRANSFERRED IN WHEEL CHAIR, HE IS ALERT AND ORIENTED X2-3, FAMILY AT BEDSIDE. BED IN LOW POSITION, FALK TO GRAVITY DARNING VALERIE URINE.
--- NOTE | 2018-06-03 19:30 | NUR ---
received report from off going nurse, both greeted pt, checked systems program manager pump, pt denies pain at this time. hob elevated, family at bedside, daughter and , in room visiting.
--- NOTE | 2018-06-03 21:55 | NUR ---
repositioned to side for comfort measures. instructed to call for help before attempting to get oob, bedmonitor on for safety..
[2018-06-04] VITALS: BP 151/81
[2018-06-04 05:32] LABS: HEMATOCRIT 30.8 % (38.2-49.6); HEMOGLOBIN 9.4 g/dL (14.0-18.0); MEAN CORPUSCULAR HGB CONC 30.5 g/dL (31-35); MEAN CORPUSCULAR VOLUME 78.6 fL (81-99); PLATELET COUNT 211 x10e3/uL (140-360); RED BLOOD COUNT 3.92 x10e6/uL (4.3-5.7); RED CELL DISTRIBUTION WIDTH 22.4 % (11.7-14.4)
[2018-06-04 06:42] LABS: LYMPHOCYTES % (MANUAL) 2 % (19-48); MONOCYTES % (MANUAL) 7 % (3.4-9.0); NEUTROPHILS % (MANUAL) 91 % (40-74); NUCLEATED RED BLOOD CELLS 1
[2018-06-04 06:43] LABS: ANISOCYTOSIS MODERATE; HYPOCHROMASIA SLIGHT; PLATELET ESTIMATE ADEQUATE; PLATELET MORPHOLOGY COMMENT FEW LARGE; RBC MORPHOLOGY COMMENT ABNORMAL
[2018-06-04 07:25] VITALS: BP 145/83
[2018-06-04 07:43] LABS: ANION GAP 11.4 mmol/L (8-16); BLOOD UREA NITROGEN 20 mg/dL (7-26); BUN/CREATININE RATIO 19 (6-25); CALCIUM 8.4 mg/dL (8.4-10.2); CARBON DIOXIDE 24 mmol/L (22-29); CHLORIDE 108 mmol/L (98-107); CREATININE, SERUM 1.08 mg/dL (0.72-1.25); EST GLOMERULAR FILTRATION RATE > 60 ML/MIN (60-); GLUCOSE 145 mg/dL (74-118); MAGNESIUM 2.3 MG/DL (1.3-2.1); POTASSIUM 4.4 mmol/L (3.5-5.1); SODIUM 139 mmol/L (136-145)
[2018-06-04] MEDS: FERROUS SULFATE 325 MG TAB PO SCH ×2 (09:13→17:53)
[2018-06-04] MEDS: PANTOPRAZOLE 40 MG 10ML VIAL IV SCH ×2 (09:13→20:41)
--- NOTE | 2018-06-04 10:30 | NUR ---
Pt's ileostomy leaked, given CHG bath. Wound care performed on mid abd incision, new ileostomy placed, patient and son received teaching on ileostomy care. Bed disinfected, linens changed, pt currently sitting in chair.
[2018-06-04 11:01] VITALS: BP 147/88
[2018-06-04] MEDS ORDERED: DEXTROSE 50% SYRINGE 50 ML IV PRN (12:15)
[2018-06-04] MEDS: DEXTROSE 5%/LACTATED RINGERS 1,000 ML IV SCH ×2 (12:40→16:53)
[2018-06-04] MEDS: CEFOXITIN SOD 1 GM VIAL IV SCH ×4 (13:00→23:28)
[2018-06-04] MEDS: INSULIN REGULAR, HUMAN 100 UNIT/1 ML 3ML VIAL SQ SCH ×2 (16:30→21:00)
[2018-06-04 16:54] VITALS: BP 157/76
[2018-06-04 18:04] VITALS: BP 157/76
--- NOTE | 2018-06-04 18:19 | NUR ---
IM- Progress Note O/N; no events REVIEW OF SYSTEMS: Denies any dizziness, chest pain. Denies any fever, chills or sweats. Denies any nausea, vomiting, headache, vision changes, back pain. PHYSICAL EXAMINATION VITAL SIGNS: Reviewed. GENERAL: A tired-appearing man resting in bed. HEENT: Anicteric. CARDIOVASCULAR: Normal S1 and S2. LUNGS: Moderate breath sounds. ABDOMEN: Soft and nondistended. He has a midline dressing in place clean and dry. He has right-sided ileostomy in place with pink appearing mucosa. EXTREMITIES: No edema or calf tenderness. NEUROLOGICAL: He is alert and oriented times 3. Moves all extremities. SKIN: Dry. PSYCHIATRIC: Normal affect. LABS: Reviewed. MEDICATIONS: Reviewed. ASSESSMENT: This is a 72-year-old man with: 1. Colon cancer: Status post small-bowel resection and ileostomy placement. 2. Severe microcytic anemia. 3. Acute kidney injury likely secondary to acute tubular necrosis. 4. Diabetes mellitus, type 2. 5. Cigarette use. 6. Coronary artery disease. 7. Diabetic vascular disease. 8. Elevated CEA of 6.6. PLAN 1. He is status post 2 units of packed red blood cell transfusion. His hemoglobin is stable. Will give 3 additional units now. 2. He is status post surgical management. He needs to follow up with his oncologist outpatient. 3. Rehydrate the patient with IV fluids. 4. Continue antibiotics empirically of cefoxitin. 5. Use SCD for DVT prophylaxis. Will add IV PPI q.12 h. 6. Will obtain H and H later today at 4 p.m. 7. Continue Miles at this time. 8. Will keep in the ICU and monitor closely today. Critical care time more than 35 minutes. 06/04 Hba1c 9.5; Add iron supplement; check BMP Rip Zafar MD, PhD.
--- NOTE | 2018-06-04 19:04 | NUR ---
Patient voided at this time. 300ml of pink tinged urine
--- NOTE | 2018-06-04 19:10 | NUR ---
REPORT RECEIVED FROM OFF GOING NURSE, PT RESTING IN BED WITH EYES CLOSED, PRESIDENTIAL HELICOPTER CREW CHIEF PUMP AT BEDSIDE INFUSING PER ORDER, IV INFUSING PER ORDER,BED ALARM ACTIVATED, CALL LIGHT IN REACH, NO DISTRESS NOTED
[2018-06-04 20:00] VITALS: BP 143/81
[2018-06-04] MEDS: HYDROCODONE/APAP 7.5MG-325MG 1 EA TAB PO PRN (20:41)
--- NOTE | 2018-06-04 20:41 | NUR ---
PRN GIVEN FOR PAIN
--- NOTE | 2018-06-04 21:20 | NUR ---
COPY AND PRINT ASSOCIATE PUMP D/C'D PER ORDER
[2018-06-04] MEDS: ONDANSETRON HCL INJ 2 MG/ML VIAL IV PRN (23:40)
[2018-06-05] VITALS (7 sets, daily range): BP systolic 112–162; BP diastolic 66–87
[2018-06-05] MEDS: CEFOXITIN SOD 1 GM VIAL IV SCH ×4 (04:52→23:40)
[2018-06-05] MEDS: DEXTROSE 5%/LACTATED RINGERS 1,000 ML IV SCH ×2 (04:53→17:14)
--- NOTE | 2018-06-05 05:20 | NUR ---
PT RESTING IN BED ALERT, NO DISTRESS NOTED, OSTOMY IN PLACE WITH NO COMPLICATIONS NOTED, DRESSING TO ABD C D I, NO DRAINAGE NOTED, IV INFUSING PER ORDER, DENIES NEEDS, CALL LIGHT IN REACH, INSTRUCTED TO CALL WITH NEEDS, BED ALARM ACTIVATED
[2018-06-05] MEDS: HYDROCODONE/APAP 7.5MG-325MG 1 EA TAB PO PRN ×2 (05:21→11:04)
--- NOTE | 2018-06-05 05:21 | NUR ---
PRN GIVEN FOR PAIN
[2018-06-05 06:29] LABS: ANION GAP 11.2 mmol/L (8-16); BLOOD UREA NITROGEN 22 mg/dL (7-26); BUN/CREATININE RATIO 19 (6-25); CALCIUM 8.8 mg/dL (8.4-10.2); CARBON DIOXIDE 25 mmol/L (22-29); CHLORIDE 107 mmol/L (98-107); CREATININE, SERUM 1.16 mg/dL (0.72-1.25); EST GLOMERULAR FILTRATION RATE > 60 ML/MIN (60-); GLUCOSE 119 mg/dL (74-118); POTASSIUM 4.2 mmol/L (3.5-5.1); SODIUM 139 mmol/L (136-145)
--- NOTE | 2018-06-05 07:26 | NUR ---
Rcvd patient in report this am. Patient is asleep in bed at this time. No s/s of distress noted
[2018-06-05] MEDS: INSULIN REGULAR, HUMAN 100 UNIT/1 ML 3ML VIAL SQ SCH ×4 (07:30→21:00)
[2018-06-05] MEDS: PANTOPRAZOLE 40 MG 10ML VIAL IV SCH ×2 (08:29→21:11)
[2018-06-05] MEDS: FERROUS SULFATE 325 MG TAB PO SCH ×2 (08:29→16:40)
--- NOTE | 2018-06-05 11:05 | NUR ---
ABdominal dressing and ileostomy bag changed. Incision to midline abdomen noted to be leaking dark stool like colored drainage. Call being placed to the surgeon to inform. Patient medicated with pain meds and resting in bed
--- NOTE | 2018-06-05 13:00 | NUR ---
Spoke with Dr. Díaz regarding leaking of stool from surgical incision. MD was not aware of issue. New order for a new colostomy bag to be placed over the surgical incision where it is leaking. Dressing changed but continues to leak. Incision to abdomen remains clean with no redness noted. [place] intact. Family aware of situation and patient is NPO at this time.
--- NOTE | 2018-06-05 14:10 | NUR ---
IM- Progress Note O/N; no events REVIEW OF SYSTEMS: Denies any dizziness, chest pain. Denies any fever, chills or sweats. Denies any nausea, vomiting, headache, vision changes, back pain. PHYSICAL EXAMINATION VITAL SIGNS: Reviewed. GENERAL: A tired-appearing man resting in bed. HEENT: Anicteric. CARDIOVASCULAR: Normal S1 and S2. LUNGS: Moderate breath sounds. ABDOMEN: Soft and nondistended. He has a midline dressing in place clean and dry. He has right-sided ileostomy in place with pink appearing mucosa. EXTREMITIES: No edema or calf tenderness. NEUROLOGICAL: He is alert and oriented times 3. Moves all extremities. SKIN: Dry. PSYCHIATRIC: Normal affect. LABS: Reviewed. MEDICATIONS: Reviewed. ASSESSMENT: This is a 72-year-old man with: 1. Colon cancer: Status post small-bowel resection and ileostomy placement. 2. Severe microcytic anemia. 3. Acute kidney injury likely secondary to acute tubular necrosis. 4. Diabetes mellitus, type 2. 5. Cigarette use. 6. Coronary artery disease. 7. Diabetic vascular disease. 8. Elevated CEA of 6.6. PLAN 1. He is status post 2 units of packed red blood cell transfusion. His hemoglobin is stable. Will give 3 additional units now. 2. He is status post surgical management. He needs to follow up with his oncologist outpatient. 3. Rehydrate the patient with IV fluids. 4. Continue antibiotics empirically of cefoxitin. 5. Use SCD for DVT prophylaxis. Will add IV PPI q.12 h. 6. Will obtain H and H later today at 4 p.m. 7. Continue Miles at this time. 8. Will keep in the ICU and monitor closely today. Critical care time more than 35 minutes. 06/04 Hba1c 5.3; Add iron supplement; check BMP 06/05 check H/H; Leakage from Sx site- Rip Zafar MD, PhD.
[2018-06-05 15:32] LABS: HEMATOCRIT 29.8 % (38.2-49.6); HEMOGLOBIN 8.9 g/dL (14.0-18.0)
--- NOTE | 2018-06-05 15:51 | NUR ---
Patient going to CT at this time. NO s/s of distress noted. Family at bedside
--- NOTE | 2018-06-05 16:37 | NUR ---
Patient back from CT. Dressing clean and dry. Family at bedside
--- NOTE | 2018-06-05 17:27 | Diagnostic Imaging Report ---
EXAM: CT Abdomen WITH contrast INDICATION: ^post op complications from incision ^[id number] ^1550 ^Y COMPARISON: CT dated 01/27/2018 TECHNIQUE: Abdomen was scanned utilizing a multidetector helical scanner from the lung base to the iliac crest after administration of IV contrast. Coronal and sagittal reformations were obtained. Dose modulation, iterative reconstruction, and/or weight based adjustment of the mA/kV was utilized to reduce the radiation dose to as low as reasonably achievable. Routine protocol was performed. Scan was performed when during portal venous phase. IV CONTRAST: 100 mL of Isovue-370 ORAL CONTRAST: None. COMPLICATIONS: None RADIATION DOSE: Total DLP: 351.4 mGy*cm Estimated effective dose: (DLP x 0.015 x size factor) mSv CTDIvol has been reviewed. It is below the limits set by the Radiation Protocol Committee (RPC). FINDINGS: LINES and TUBES: None. LOWER THORAX: Small bilateral pleural effusions with adjacent compressive atelectasis. Partially seen median sternotomy wires and mediastinal surgical clips. Mild atherosclerotic ossification of coronary arteries. Cardiomegaly. HEPATOBILIARY: No focal hepatic lesions. No biliary ductal dilation. GALLBLADDER: Distended gallbladder with tiny dependent stones. No wall thickening. SPLEEN: No splenomegaly. PANCREAS: Atrophic. No focal masses or ductal dilatation. ADRENALS: No adrenal nodules KIDNEYS/URETERS: Kidneys enhance symmetrically. No hydronephrosis. No cystic or solid mass lesions. No stones. GI TRACT: Markedly distended gas and fluid-filled stomach as well as small bowel loops. There is small bowel anastomosis in left abdomen. Right lower quadrant ostomy. The small bowel loops seen right lower quadrants are collapsed. LYMPH NODES: No lymphadenopathy. VESSELS: Moderate to severe distal abdominal aorta and iliac atherosclerotic disease. There is left common iliac stents in place. PERITONEUM / RETROPERITONEUM: Small volume ascites as well as pneumoperitoneum. Loculated appearing collection in right abdomen. Mild peripheral enhancement, measuring approximately 6.9 x 3.7 cm (series 301, image 55). Another left anterior collection, abutting the abdominal wall measuring 5.9 x 1.6 cm (series 300, image 86). BONES: Degenerative changes of spine. SOFT TISSUES: Abdominal wall surgical scar. Skin jessie and subcutaneous emphysema. IMPRESSION: 1. Markedly distended gas and fluid filled stomach and proximal small bowel loops with collapsed right lower quadrant small bowel loops, concerning for at least partial small bowel obstruction or less likely ileus. 2. Small volume ascites with moderate pneumoperitoneum, which is probably postsurgical. 3. Loculated appearing abdominal collections with mild peripheral enhancement, as described above, concerning for abscess formation. 4. Distended gallbladder with small dependent gallstones. 5. Small bilateral pleural effusions with adjacent compressive atelectasis. Signed by: Dr. Mateo Hutchins MD on 06/05/2018 5:24 PM
[2018-06-05] MEDS ORDERED: SODIUM CHLORIDE 0.9% 50ML 50 ML ONE (17:44)
[2018-06-05] MEDS ORDERED: IOPAMIDOL 370 MG/ML 200 ML INFUS..BTL INJ ONE (17:45)
--- NOTE | 2018-06-05 18:15 | NUR ---
Dr. Díaz informed of CT results and no new orders. Continue to keep patient NPO and monitor. MD to see patient in the am.
--- NOTE | 2018-06-05 21:21 | NUR ---
SPOKE TO DR. AGUIRRE AT THIS TIME REGARDING 200ML OF STOOL LEAKING IN THE COLOSTOMY BAG OVER THE SURGICAL INCISION. MD ORDERED TO INCREASE IVF TO 125 MLS/HR AND PT MAY HAVE ICE CHIPS.
[2018-06-06] VITALS (7 sets, daily range): BP systolic 125–170; BP diastolic 64–81
[2018-06-06] MEDS: DEXTROSE 5%/LACTATED RINGERS 1,000 ML IV SCH ×3 (04:11→20:16)
[2018-06-06] MEDS: CEFOXITIN SOD 1 GM VIAL IV SCH ×4 (05:31→23:20)
[2018-06-06 06:00] LABS: BASOPHILS % 0.5 % (0.0-1.0); EOSINOPHILS % 0.4 % (0.0-6.0); HEMATOCRIT 29.2 % (38.2-49.6); LYMPHOCYTES # (AUTO) 0.4 (1.0-3.2); LYMPHOCYTES % 6.4 % (18.0-39.1); MEAN CORPUSCULAR HEMOGLOBIN 24.1 pg (28-32); MEAN CORPUSCULAR HGB CONC 30.8 g/dL (31-35); MEAN CORPUSCULAR VOLUME 78.3 fL (81-99); MONOCYTES # (AUTO) 0.5 (0.2-0.8); MONOCYTES % 8.1 % (4.4-11.3); NEUTROPHILS # (AUTO) 4.7 (2.1-6.9); NEUTROPHILS % 83.5 % (38.7-80.0); PLATELET COUNT 197 x10e3/uL (140-360); RED BLOOD COUNT 3.73 x10e6/uL (4.3-5.7); RED CELL DISTRIBUTION WIDTH 24.6 % (11.7-14.4)
[2018-06-06 06:24] LABS: ALBUMIN 1.9 g/dL (3.5-5.0); ALBUMIN/GLOBULIN RATIO 0.5 (0.8-2.0); CALCIUM 8.7 mg/dL (8.4-10.2); CREATININE, SERUM 1.48 mg/dL (0.72-1.25)
[2018-06-06] MEDS: INSULIN REGULAR, HUMAN 100 UNIT/1 ML 3ML VIAL SQ SCH ×4 (07:30→20:38)
--- NOTE | 2018-06-06 07:48 | NUR ---
Rcvd patient in report this am. Patient is asleep in bed at this time. Ileostomy bags are holding up and no leaking noted at this time.
[2018-06-06] MEDS: FERROUS SULFATE 325 MG TAB PO SCH ×2 (08:00→16:40)
[2018-06-06] MEDS: HYDROCODONE/APAP 7.5MG-325MG 1 EA TAB PO PRN ×2 (08:16→14:44)
[2018-06-06] MEDS: PANTOPRAZOLE 40 MG 10ML VIAL IV SCH ×2 (09:17→20:46)
--- NOTE | 2018-06-06 11:07 | NUR ---
Patient is AAOx3. Patient is one week post op from exploratory lap with an ileostomy placement. Right sided ileostomy clean and intact. Medial incision to abdomen clean at the top part and another colostomy bag is attached to the lower half of the incision due to leaking. 100ml of dark liquid stool removed from bag this am. PRN pain meds given. Patient is NPO except ice chips and tolerating them well. Patient states "I feel so bloated." Lung simental clear to auscultation. Bowel sounds present x4. [place] intact to incision. Patient refusing to wear the SCD's at this time due to feeling hot.
[2018-06-06 12:49] LABS: BAND NEUTROPHILS % (MANUAL) 33 %; LYMPHOCYTES % (MANUAL) 5 % (19-48); MONOCYTES % (MANUAL) 2 % (3.4-9.0); NEUTROPHILS % (MANUAL) 60 % (40-74)
[2018-06-06 12:50] LABS: PLATELET ESTIMATE ADEQUATE; PLATELET MORPHOLOGY COMMENT FEW LARGE; RBC MORPHOLOGY COMMENT NORMAL
--- NOTE | 2018-06-06 20:06 | NUR ---
IM- Progress Note O/N; no events REVIEW OF SYSTEMS: Denies any dizziness, chest pain. Denies any fever, chills or sweats. Denies any nausea, vomiting, headache, vision changes, back pain. PHYSICAL EXAMINATION VITAL SIGNS: Reviewed. GENERAL: A tired-appearing man resting in bed. HEENT: Anicteric. CARDIOVASCULAR: Normal S1 and S2. LUNGS: Moderate breath sounds. ABDOMEN: Soft and nondistended. He has a midline dressing in place clean and dry. He has right-sided ileostomy in place with pink appearing mucosa. EXTREMITIES: No edema or calf tenderness. NEUROLOGICAL: He is alert and oriented times 3. Moves all extremities. SKIN: Dry. PSYCHIATRIC: Normal affect. LABS: Reviewed. MEDICATIONS: Reviewed. ASSESSMENT: This is a 72-year-old man with: 1. Colon cancer: Status post small-bowel resection and ileostomy placement. 2. Severe microcytic anemia. 3. Acute kidney injury likely secondary to acute tubular necrosis. 4. Diabetes mellitus, type 2. 5. Cigarette use. 6. Coronary artery disease. 7. Diabetic vascular disease. 8. Elevated CEA of 6.6. PLAN 1. He is status post 2 units of packed red blood cell transfusion. His hemoglobin is stable. Will give 3 additional units now. 2. He is status post surgical management. He needs to follow up with his oncologist outpatient. 3. Rehydrate the patient with IV fluids. 4. Continue antibiotics empirically of cefoxitin. 5. Use SCD for DVT prophylaxis. Will add IV PPI q.12 h. 6. Will obtain H and H later today at 4 p.m. 7. Continue Miles at this time. 8. Will keep in the ICU and monitor closely today. Critical care time more than 35 minutes. 06/04 Hba1c 5.3; Add iron supplement; check BMP 06/05 check H/H; Leakage from Sx site- 06/06 monitor; re-eval in am; no pain; check labs in am. d/w family at bedside. Rip Zafar MD, PhD.
[2018-06-07] VITALS: BP 128/62
[2018-06-07] MEDS: DEXTROSE 5%/LACTATED RINGERS 1,000 ML IV SCH ×3 (01:38→20:16)
[2018-06-07 04:52] VITALS: BP 130/78
[2018-06-07 06:19] LABS: HEMATOCRIT 29.8 % (38.2-49.6); HEMOGLOBIN 9.1 g/dL (14.0-18.0); MEAN CORPUSCULAR HEMOGLOBIN 23.9 pg (28-32); MEAN CORPUSCULAR HGB CONC 30.5 g/dL (31-35); MEAN CORPUSCULAR VOLUME 78.4 fL (81-99); PLATELET COUNT 186 x10e3/uL (140-360); RED CELL DISTRIBUTION WIDTH 25.3 % (11.7-14.4)
[2018-06-07] MEDS: CEFOXITIN SOD 1 GM VIAL IV SCH ×4 (06:19→23:50)
--- NOTE | 2018-06-07 06:30 | NUR ---
DR. AGUIRRE DOING ROUNDS AT THIS TIME. INFORMED MD ABOUT THE OUTPUT IN RIGHT ILEOSTOMY BAG AND IN THE COLOSTOMY BAG OVER THE MIDLINE SURGICAL INCISION. NO NEW ORDER.
[2018-06-07 06:46] LABS: ANION GAP 12.8 mmol/L (8-16); BLOOD UREA NITROGEN 25 mg/dL (7-26); BUN/CREATININE RATIO 23 (6-25); CALCIUM 8.5 mg/dL (8.4-10.2); CARBON DIOXIDE 26 mmol/L (22-29); CHLORIDE 109 mmol/L (98-107); CREATININE, SERUM 1.08 mg/dL (0.72-1.25); EST GLOMERULAR FILTRATION RATE > 60 ML/MIN (60-); GLUCOSE 131 mg/dL (74-118); POTASSIUM 3.8 mmol/L (3.5-5.1); SODIUM 144 mmol/L (136-145)
[2018-06-07 07:16] LABS: HYPOCHROMASIA MODERATE
[2018-06-07 07:17] LABS: ANISOCYTOSIS MODERATE; PLATELET ESTIMATE ADEQUATE; PLATELET MORPHOLOGY COMMENT FEW GIANT; RBC MORPHOLOGY COMMENT ABNORMAL; TARGET CELLS MODERATE
[2018-06-07 07:18] LABS: BURR CELLS SLIGHT
[2018-06-07] MEDS: INSULIN REGULAR, HUMAN 100 UNIT/1 ML 3ML VIAL SQ SCH ×4 (07:30→21:00)
[2018-06-07 07:43] LABS: BAND NEUTROPHILS % (MANUAL) 10 %; LYMPHOCYTES % (MANUAL) 5 % (19-48); MONOCYTES % (MANUAL) 3 % (3.4-9.0); NEUTROPHILS % (MANUAL) 81 % (40-74)
[2018-06-07 08:00] VITALS: BP 149/73
[2018-06-07] MEDS: FERROUS SULFATE 325 MG TAB PO SCH ×2 (09:15→17:00)
[2018-06-07] MEDS: PANTOPRAZOLE 40 MG 10ML VIAL IV SCH ×2 (09:15→21:16)
--- NOTE | 2018-06-07 11:40 | NUR ---
PT MIDLINE INCISION NOTED TO BE LEAKING STOOL ABOVE BAG, ALSO BAG COLLECTING STOOL NOTED TO BE LEAKING , REMOVED ABD DRESSING AND COLOSTOMY BAG (COLLECTING INCISION DRAINAGE), REDNESS NOTED SURROUNDING MARCELA, CLEANSED, NEW BAG PLACED, REMOVED ILEOSTOMY BAG DUE TO LEAKAGE FROM INCISION BAG ON WAFER, STOMA RED, SUTURES VISIBLE, CLEANSED, NEW BAG PLACED, PT MEDICATED PER MD ORDER,CALL LIGHT WITHIN REACH
[2018-06-07] MEDS: HYDROCODONE/APAP 7.5MG-325MG 1 EA TAB PO PRN ×2 (11:49→18:00)
[2018-06-07 12:00] VITALS: BP 140/73
--- NOTE | 2018-06-07 12:37 | NUR ---
SPOKE WITH MD AGUIRRE REGARDING PT LEAKING INCISION OF STOOL AND LIQUID, NOTIFIED OF CHANGING ILEOSTOMY AND INCISION BAG X2, DUE TO LEAKAGE, ORDER NOTED FOR WOUND CARE AND NPO, PT AWARE
--- NOTE | 2018-06-07 12:45 | NUR ---
SPOKE WITH ARELY WITH WOUND CARE, AWARE OF CONSULT
--- NOTE | 2018-06-07 14:03 | NUR ---
DRESSING CDI TO ABD AT THIS TIME, DRAINAGE NOTED IN BAG
--- NOTE | 2018-06-07 15:49 | NUR ---
WOUND CARE CONSULTATION. 72 YEAR OLD MALE ADMITTED TO [facility] WITH DX OF RECURRENT CARCINOMA OF THE COLON. HEAD TO TOE SKIN ASSESSMENT PERFORMED TODAY RLQ COLOSTOMY BAG INTACT. MID ABDOMINAL INCISION WITH MARCELA INTACT. MILD ERYTHEMA SURROUNDING MARCELA IS NOTED. LARGE AMOUNT OF BROWN LIQUID STOOL DRAINING FROM DISTAL ASPECT OF INCISION LINE. OSTOMY BAG APPLIED OVER INCISION LINE TO ACCOMMODATE DRAINAGE. PT S/P CYSTOSCOPY AND BILATERAL RETROGRADE PYELOGRAM, PLACEMENT OF BILATERAL URETHRAL CATHETERS, OPEN ENDED DEVICE, EXPLORATORY LAPAROTOMY, LYSIS OF ADHESIONS, SMALL-BOWEL RESECTION X3 AND CREATION OF LOOP ILEOSTOMY ON JUN [address] SALINAS AND DR. AGUIRRE. THERE ARE NO OTHER AREAS OF CONCERN NOTE AT THIS TIME. NURSING REPORTED FINDINGS TO DR. AGUIRRE, WOUND CARE CONSULT ORDER GIVEN. PHONE CALL PLACED TO DR. AGUIRRE, AWAITING FOR HIM TO CALL BACK. FINDINGS ALSO REPORTED TO BARBARA, MEDICAL TERRITORY MANAGER. LABS: WBC: 8.59 GLUCOSE: 129 ALB: 1.9 Addendum: 06/07/18 at 1612 by Michelle Martinez RN Amended: Links added.
[2018-06-07 16:00] VITALS: BP 143/70
--- NOTE | 2018-06-07 16:23 | NUR ---
SPOKE WITH DR. AGUIRRE. STATES HE IS BUSY AT THIS TIME, HE WILL RETURN MY PHONE CALL [facility]. PHONE CALL PLACED TO ATTENDING DR. FOURNIER.
--- NOTE | 2018-06-07 17:30 | NUR ---
SPOKE WITH DR. AGUIRRE STATES HE IS AWARE OF THE PATIENT'S CONDITION. 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 NO NEW ORDERS RECEIVED AT THIS TIME.
--- NOTE | 2018-06-07 17:40 | NUR ---
PT MEDICATED PER MD ORDER, REPOSITIONED, FAMILY AT SIDE, CALL LIGHT WITHIN REACH
[2018-06-07] MEDS: ONDANSETRON HCL INJ 2 MG/ML VIAL IV PRN (18:01)
[2018-06-07 20:00] VITALS: BP 138/63
[2018-06-08] VITALS (8 sets, daily range): BP systolic 117–138; BP diastolic 59–63
[2018-06-08] MEDS: DEXTROSE 5%/LACTATED RINGERS 1,000 ML IV SCH ×3 (01:35→15:55)
[2018-06-08] MEDS: CEFOXITIN SOD 1 GM VIAL IV SCH ×3 (05:25→18:27)
[2018-06-08 06:06] LABS: BASOPHILS % 0.4 % (0.0-1.0); EOSINOPHILS # (AUTO) 0.1 (0.0-0.4); EOSINOPHILS % 1.4 % (0.0-6.0); LYMPHOCYTES # (AUTO) 0.7 (1.0-3.2); LYMPHOCYTES % 9.7 % (18.0-39.1); MEAN CORPUSCULAR HEMOGLOBIN 23.9 pg (28-32); MEAN CORPUSCULAR VOLUME 79.6 fL (81-99); MONOCYTES # (AUTO) 0.6 (0.2-0.8); NEUTROPHILS # (AUTO) 6.1 (2.1-6.9); NEUTROPHILS % 79.6 % (38.7-80.0); PLATELET COUNT 190 x10e3/uL (140-360); RED BLOOD COUNT 3.77 x10e6/uL (4.3-5.7)
[2018-06-08 06:29] LABS: ALBUMIN 1.7 g/dL (3.5-5.0); CALCIUM 8.1 mg/dL (8.4-10.2); CREATININE, SERUM 1.19 mg/dL (0.72-1.25)
[2018-06-08 06:52] LABS: ALBUMIN/GLOBULIN RATIO 0.5 (0.8-2.0)
[2018-06-08] MEDS: INSULIN REGULAR, HUMAN 100 UNIT/1 ML 3ML VIAL SQ SCH ×4 (07:30→21:00)
[2018-06-08] MEDS: FERROUS SULFATE 325 MG TAB PO SCH ×2 (08:00→17:00)
[2018-06-08 08:03] LABS: ANISOCYTOSIS SLIGHT; HYPOCHROMASIA SLIGHT; PLATELET ESTIMATE ADEQUATE; PLATELET MORPHOLOGY COMMENT NORMAL; RBC MORPHOLOGY COMMENT NORMAL
[2018-06-08] MEDS: PANTOPRAZOLE 40 MG 10ML VIAL IV SCH ×2 (08:32→22:11)
--- NOTE | 2018-06-08 08:41 | NUR ---
AA&O X3, RA, DENIES PAIN AT THIS TIME, BATH COMPLETED BY PM PCT, PT TOLERATED WELL, BAGS X2 INTACT TO ABDOMEN, CONTINUED LEAKAGE NOTED BOTTOM OF INCISION, PT DENIES PAIN AT THIS TIME, TOLERATING ICE CHIPS AT THIS TIME, CALL LIGHT WITHIN REACH
[2018-06-08] MEDS: HYDROCODONE/APAP 7.5MG-325MG 1 EA TAB PO PRN ×2 (10:45→22:15)
[2018-06-08 12:19] LABS: BASOPHILS % 0.3 % (0.0-1.0); EOSINOPHILS # (AUTO) 0.1 (0.0-0.4); EOSINOPHILS % 1.3 % (0.0-6.0); HEMATOCRIT 29.5 % (38.2-49.6); HEMOGLOBIN 8.8 g/dL (14.0-18.0); LYMPHOCYTES # (AUTO) 0.8 (1.0-3.2); LYMPHOCYTES % 11.6 % (18.0-39.1); MEAN CORPUSCULAR HEMOGLOBIN 23.7 pg (28-32); MEAN CORPUSCULAR HGB CONC 29.8 g/dL (31-35); MEAN CORPUSCULAR VOLUME 79.5 fL (81-99); MONOCYTES # (AUTO) 0.7 (0.2-0.8); MONOCYTES % 10.3 % (4.4-11.3); NEUTROPHILS # (AUTO) 5.3 (2.1-6.9); NEUTROPHILS % 75.9 % (38.7-80.0); PLATELET COUNT 199 x10e3/uL (140-360); RED BLOOD COUNT 3.71 x10e6/uL (4.3-5.7); RED CELL DISTRIBUTION WIDTH 26.1 % (11.7-14.4)
[2018-06-08 12:27] LABS: CALCIUM IONIZED 1.1 mmol/L (1.09-1.30)
[2018-06-08 12:40] LABS: ALANINE AMINOTRANSFERASE 7 IU/L (0-55); ALBUMIN 1.6 g/dL (3.5-5.0); ALKALINE PHOSPHATASE 92 IU/L (40-150); ANION GAP 9.6 mmol/L (8-16); BILIRUBIN,DIRECT 0.3 mg/dL (0.0-0.5); BLOOD UREA NITROGEN 14 mg/dL (7-26); BUN/CREATININE RATIO 14 (6-25); CARBON DIOXIDE 29 mmol/L (22-29); CHLORIDE 109 mmol/L (98-107); CREATININE, SERUM 0.99 mg/dL (0.72-1.25); EST GLOMERULAR FILTRATION RATE > 60 ML/MIN (60-); GLUCOSE 117 mg/dL (74-118); PHOSPHORUS 2.3 MG/DL (2.3-4.7); POTASSIUM 4.6 mmol/L (3.5-5.1); SODIUM 143 mmol/L (136-145)
--- NOTE | 2018-06-08 13:00 | NUR ---
VISITING WITH FAMILY, CALL LIGHT WITHIN REACH
[2018-06-08 14:12] LABS: TRIGLYCERIDES 128 MG/DL (0-149)
[2018-06-08 14:14] LABS: ALBUMIN/GLOBULIN RATIO 0.4 (0.8-2.0)
[2018-06-08] MEDS ORDERED: CENTRAL TPN FORMULA 1 BAG IV SCH (14:30)
--- NOTE | 2018-06-08 16:30 | NUR ---
LEAKAGE DECREASED TO WOUND, PT VOICES NO NEEDS AT THIS TIME, CALL LIGHT WITHIN REACH
--- NOTE | 2018-06-08 17:14 | NUR ---
Nutrition Intervention Note RD Recommendation for Physician: - Current standard TPN @50mL/hr, providing 1200ml total volume/day, 180g dextrose, 60g AA 10%. Total kcal including lipids of 50gm/week 1045kcal/day. Meets 73% of his est calorie and 75% est protein needs. - If no sign of refeeding syndrome after 48hr of TPN administration, consider increasing dextrose to 250 g/day to more adequately meet kcal needs. - Consider adding thiamine and folic acid in TPN for dextrose metabolism - BMP, Phos, Mag repeat daily; prealbumin, LFT, TG monitor weekly - BG check every 6 hr with corrective dose insulin - Continue with TPN per MD until diet is advanced and intake >50% - Advance diet as tolerated to ADA/ GI soft Plan of Care: RD following, monitoring for tolerance and adequacy, TPN Nutrition reason for involvement: New TPN, follow up Primary Diagnose(s): 1. Colon cancer: Status post small-bowel resection and ileostomy placement. 2. Severe microcytic anemia. 3. Acute kidney injury likely secondary to acute tubular necrosis. PMH: CKD, GI bleed, CAD, DM, partial bowel obstruction, PVD, anemia, colon cancer dx in 2016 GI: ileostomy bag is present Skin: mid abdominal incision with jessie intact Labs: (06/08) Ca 8.0 L Meds: (06/08) protonix, IVF Ht: 69in Wt: 177lb 06/08 178lb 06/02 183lb 01/2018 BMI: 26.3kg/m2 IBW: 160lb RD Assessment: (06/08) Chart reviewed. Pt was discussed during rounds. Pt is post-op day 7. Pt has had leaking from surgical site for over 3 days. Wound care is following. NPO/ clear liquid x 7 days since admission. TPN has been scheduled to start this evening. Pt denies of N/V or abdominal pain at this time. Ileostomy bag is present. Explained the purpose of TPN to family. Will continue to monitor and follow. (06/03) Chart reviewed. Labs and meds reviewed. 72yo M, who is admitted for elective colon resection in the setting of colon cancer. He underwent the procedure with small-bowel resection and ileostomy on 06/01. Diet has been advanced to clear liquid. During my visit, pr reports eating about the same before coming into the hospital. Pt denies any N/V or abdominal pain at this time. Pt reports of ~5lb weight loss in 4 months, which is ~2.7% in 4 months (insignificant). Pt denies any chewing or swallowing difficulty. Will continue to monitor and follow. Malnutrition Evaluation (06/03/18) The patient does not meet criteria for a specified degree of malnutrition at this time. Will re-evaluate at follow-up as appropriate. Weight loss: ~5lb weight loss in 4 months, which is ~2.7% in 4 months (insignificant) Malnutrition Evaluation (06/08) The patient does not meet criteria for a specified degree of malnutrition at this time. Will re-evaluate at follow-up as appropriate. Energy intake: <75% of estimated energy requirements for >7 days Weight loss: Weight stable since admission Fat loss: None Muscle loss: None Nutrition Prescription (Diet Order): NPO Estimated Nutritional Needs: Calories: 1440 1600kcal (18-20kcal/kg/d) Weight used : Actual BW Protein : 80-120g (1-1.5g/kg/d) Weight used: Actual BW Diet Adequacy: Not meeting calorie needs, Not meeting protein needs Diet Education Needs Assessment: Diet education indicated and patient agreeable. TPN education Nutrition Care Level: high Nutrition Diagnosis: Inadequate oral intake related to current medical status as evidenced by pt requiring TPN as main source of nutrition. Goal: Patient will meet 75-100% of estimated needs by follow up Progress: N/A Interventions: IVF, Prescription medications, Survival information, Multivitamin/mineral supplement therapy Monitoring/Evaluation: Total energy intake, Total protein intake, IVF, Prescription medication, Weight change Signed: Smiley Bacon, MS, RD, LD
--- NOTE | 2018-06-08 18:30 | NUR ---
AWAKENS EASILY TO VOICE, DENIES PAIN AT THIS TIME, FAMILY AT SIDE, CALL LIGHT WITHIN REACH
[2018-06-09] VITALS (9 sets, daily range): BP systolic 117–145; BP diastolic 61–72
[2018-06-09] MEDS: CEFOXITIN SOD 1 GM VIAL IV SCH ×3 (00:27→11:26)
[2018-06-09] MEDS: DEXTROSE 5%/LACTATED RINGERS 1,000 ML IV SCH ×2 (04:18→12:16)
[2018-06-09] MEDS: HYDROCODONE/APAP 7.5MG-325MG 1 EA TAB PO PRN (06:09)
[2018-06-09 07:01] LABS: ALBUMIN 1.6 g/dL (3.5-5.0); ALBUMIN/GLOBULIN RATIO 0.4 (0.8-2.0); ALKALINE PHOSPHATASE 94 IU/L (40-150); ANION GAP 10.3 mmol/L (8-16); BLOOD UREA NITROGEN 11 mg/dL (7-26); BUN/CREATININE RATIO 12 (6-25); CALCIUM 7.6 mg/dL (8.4-10.2); CARBON DIOXIDE 24 mmol/L (22-29); CHLORIDE 108 mmol/L (98-107); CREATININE, SERUM 0.94 mg/dL (0.72-1.25); EST GLOMERULAR FILTRATION RATE > 60 ML/MIN (60-); GLUCOSE 141 mg/dL (74-118); POTASSIUM 3.3 mmol/L (3.5-5.1); SODIUM 139 mmol/L (136-145)
[2018-06-09 07:06] LABS: ALANINE AMINOTRANSFERASE < 6 IU/L (0-55)
--- NOTE | 2018-06-09 07:28 | NUR ---
Rcvd patient in report this am. Patient is asleep in bed at this time. NO s/s of distress noted
[2018-06-09] MEDS: INSULIN REGULAR, HUMAN 100 UNIT/1 ML 3ML VIAL SQ SCH ×3 (07:30→18:26)
[2018-06-09] MEDS ORDERED: POTASSIUM CHLORIDE 20MEQ/100ML 100 ML IV ONE (07:30)
[2018-06-09] MEDS: FERROUS SULFATE 325 MG TAB PO SCH ×2 (07:52→15:27)
--- NOTE | 2018-06-09 08:09 | NUR ---
IM- Progress Note O/N; no events REVIEW OF SYSTEMS: Denies any dizziness, chest pain. Denies any fever, chills or sweats. Denies any nausea, vomiting, headache, vision changes, back pain. PHYSICAL EXAMINATION VITAL SIGNS: Reviewed. GENERAL: A tired-appearing man resting in bed. HEENT: Anicteric. CARDIOVASCULAR: Normal S1 and S2. LUNGS: Moderate breath sounds. ABDOMEN: Soft and nondistended. He has a midline dressing in place clean and dry. He has right-sided ileostomy in place with pink appearing mucosa. EXTREMITIES: No edema or calf tenderness. NEUROLOGICAL: He is alert and oriented times 3. Moves all extremities. SKIN: Dry. PSYCHIATRIC: Normal affect. LABS: Reviewed. MEDICATIONS: Reviewed. ASSESSMENT: This is a 72-year-old man with: 1. Colon cancer: Status post small-bowel resection and ileostomy placement. 2. Severe microcytic anemia. 3. Acute kidney injury likely secondary to acute tubular necrosis. 4. Diabetes mellitus, type 2. 5. Cigarette use. 6. Coronary artery disease. 7. Diabetic vascular disease. 8. Elevated CEA of 6.6. PLAN 1. He is status post 2 units of packed red blood cell transfusion. His hemoglobin is stable. Will give 3 additional units now. 2. He is status post surgical management. He needs to follow up with his oncologist outpatient. 3. Rehydrate the patient with IV fluids. 4. Continue antibiotics empirically of cefoxitin. 5. Use SCD for DVT prophylaxis. Will add IV PPI q.12 h. 6. Will obtain H and H later today at 4 p.m. 7. Continue Miles at this time. 8. Will keep in the ICU and monitor closely today. Critical care time more than 35 minutes. 06/04 Hba1c 5.3; Add iron supplement; check BMP 06/05 check H/H; Leakage from Sx site- 06/06 monitor; re-eval in am; no pain; check labs in am. d/w family at bedside. 06/07 supportive care; 06/08 continued care; liq diet; may need TPN. 06/09 cont supportive care; replace K using IV Rip Zafar MD, PhD.
[2018-06-09] MEDS: PANTOPRAZOLE 40 MG 10ML VIAL IV SCH ×2 (08:50→21:00)
[2018-06-09] MEDS: HYDROMORPHONE 2MG/ML 2 MG/ML ML IV PRN ×3 (08:50→23:40)
[2018-06-09] MEDS: ONDANSETRON HCL INJ 2 MG/ML VIAL IV PRN ×2 (08:50→17:12)
--- NOTE | 2018-06-09 11:52 | NUR ---
BACK TO OR TODAY TO REPAIR POST OP FISTULA DC PLANS UNCERTAIN AT THIS TIME
--- NOTE | 2018-06-09 11:58 | NUR ---
Patient went to OR at this time.
[2018-06-09] MEDS ORDERED: SODIUM CHLORIDE 0.9% 100 ML ONE (13:16)
[2018-06-09] MEDS ORDERED: ONDANSETRON HCL INJ 2 MG/ML VIAL IV PRN (13:45)
[2018-06-09] MEDS ORDERED: ACETAMINOPHEN 1000 MG/100 ML IV PRN (13:45)
[2018-06-09] MEDS ORDERED: ROCURONIUM BROMIDE 10 MG/ML 5ML VIAL ONE (13:48)
[2018-06-09] MEDS ORDERED: SEVOFLURANE INHAL SOLN 250 ML PEN BTL ONE (13:48)
[2018-06-09] MEDS ORDERED: DEXAMETHASONE SOD PHOS INJ 4 MG/ML VIAL ONE (13:48)
[2018-06-09] MEDS ORDERED: SUCCINYLCHOLINE 200 MG/10 ML SYR ONE (13:48)
[2018-06-09] MEDS ORDERED: ONDANSETRON HCL INJ 2 MG/ML VIAL ONE (13:48)
[2018-06-09] MEDS ORDERED: PROPOFOL IV EMULSION 10 MG/ML 20 ML VIAL ONE (13:48)
[2018-06-09] MEDS ORDERED: LIDOCAINE HCL 2% LOCAL INJ 5 ML SDV VIAL INJ ONE (13:48)
[2018-06-09] MEDS ORDERED: PHENYLEPHRINE HCL 1% 10 MG/ML VIAL ONE (13:49)
--- NOTE | 2018-06-09 14:34 | Operative Report ---
DATE OF PROCEDURE: June 09, 2018 PREOPERATIVE DIAGNOSES 1. Ventral cutaneous fistula. 2. Intra-abdominal abscess. POSTOPERATIVE DIAGNOSES 1. Ventral cutaneous fistula. 2. Intra-abdominal abscess. PROCEDURES 1. Exploratory laparotomy. 2. Drainage of intra-abdominal abscess. 3. Repair of small bowel perforation times 2. LIFE SKILLS CONSULTANT: None. ANESTHESIA: General. INDICATIONS AND FINDINGS: Patient is a 72-year-old male who had surgery about a little more than a week ago for recurrent carcinoma of the colon. Found to have extensive cancer in the abdomen. He developed drainage of feculent material through the wound, which persisted and seemed like he was not improving. At surgery, there was a perforation of small bowel, which was about 5 mm in diameter. There was an abscess around this area. On exploration, there was a 2nd perforation found. This had been sealed by omentum. TECHNIQUE: After adequate general endotracheal anesthesia with the patient in the supine position, the abdomen was prepped and draped in a sterile fashion with ChloraPrep solution. The midline was opened, and there was some purulent fluid in the midline wound with foul odor. As the peritoneal cavity was entered, there was additional fluid within the lower abdomen. Fibrinous adhesions were broken up. The small bowel was freed from these fibrinous adhesions, and there was found be a perforation in the small bowel. This was closed in 2 layers with 3-0 Vicryl and 3-0 silk. The peritoneal cavity was explored further. Fibrinous adhesions were broken up. There was some omentum adherent over the bowel as the omentum was freed from bowel partially so it could only be used as a patch over the area of perforation. As this was freed, there was a 2nd perforation that was found. This was closed with 2 layers of 3-0 Vicryl and omentum sutured over this using 3-0 Vicryl. A flap of omentum was then created from omentum that was freed. This was brought over to the area of the 1st perforation that was encountered. This was sutured over the area using 3-0 Vicryl. The main exploration did not reveal any other perforation. The bowel all appeared viable. Cause of perforation was not immediately apparent. The peritoneal cavity was then irrigated with a large volume of warm saline. A 19-[place] Pasquale drain was placed in the lower abdomen adjacent to the area of the perforation through a separate stab wound incision. The midline fascia was then closed with a running suture of #1 PDS. Skin and subcutaneous tissue was left open. Sterile dressing applied. The patient tolerated the procedure well. Estimated blood loss was 50 mL. There were no complications. All counts were correct. The patient was taken to the recovery room in satisfactory condition. Job#: [id number] SKIP
[2018-06-09] MEDS: SODIUM CHLORIDE 0.9% 250ML IRRIG IR SCH ×3 (15:00→21:30)
[2018-06-09] MEDS: METRONIDAZOLE 500MG/NS 100ML 100 ML IV SCH (17:12)
[2018-06-09] MEDS: PIPER-TAZ 3.375 GM 50 ML IV SCH ×2 (18:01→23:30)
[2018-06-09] MEDS: SODIUM CHLORIDE 0.9% 1000ML 1,000 ML IV SCH ×2 (18:01→23:18)
[2018-06-09] MEDS ORDERED: FENTANYL CITRATE/PF 100MCG/2 ML INJ ONE (19:34)
[2018-06-09] MEDS ORDERED: CENTRAL TPN FORMULA 1 BAG IV SCH (20:00)
--- NOTE | 2018-06-09 20:39 | Diagnostic Imaging Report ---
EXAM: ABDOMEN-1VIEW (KUB), DATE: 06/09/2018 7:51 PM INDICATION: Recurrent carcinoma. NG tube placement. COMPARISON: None FINDINGS: LINES/TUBES: NG tube has been placed with distal tip projected on the left upper quadrant laterally, in the gastric body laterally. Ted-Yu tube projected on the pelvis. BOWEL PATTERN: A few mildly dilated small bowel loops may reflect mild postoperative ileus. SOFT TISSUES: No abnormal calcifications. No mass effect. LUNG BASES: Bibasilar subsegmental atelectasis. Mediastinal wires. BONES: No acute findings. IMPRESSION: NG tube with distal tip projected on the expected location of the lateral gastric body. Mild ileus. Signed by: Dr. Ashley Posadas M.D. on 06/09/2018 8:35 PM
[2018-06-10] VITALS (7 sets, daily range): BP systolic 128–144; BP diastolic 61–72
[2018-06-10] MEDS: INSULIN REGULAR, HUMAN 100 UNIT/1 ML 3ML VIAL SQ SCH ×4 (00:50→18:18)
[2018-06-10] MEDS: SODIUM CHLORIDE 0.9% 250ML IRRIG IR SCH ×6 (01:51→21:11)
[2018-06-10] MEDS: HYDROMORPHONE 2MG/ML 2 MG/ML ML IV PRN ×3 (05:15→23:00)
[2018-06-10] MEDS: PIPER-TAZ 3.375 GM 50 ML IV SCH ×4 (05:30→23:20)
[2018-06-10 06:00] LABS: BASOPHILS % 0.2 % (0.0-1.0); HEMATOCRIT 29.6 % (38.2-49.6); HEMOGLOBIN 8.8 g/dL (14.0-18.0); LYMPHOCYTES % 8.7 % (18.0-39.1); MEAN CORPUSCULAR HEMOGLOBIN 23.5 pg (28-32); MEAN CORPUSCULAR HGB CONC 29.7 g/dL (31-35); MEAN CORPUSCULAR VOLUME 78.9 fL (81-99); MONOCYTES # (AUTO) 0.7 (0.2-0.8); MONOCYTES % 6.8 % (4.4-11.3); NEUTROPHILS # (AUTO) 9.2 (2.1-6.9); NEUTROPHILS % 83.6 % (38.7-80.0); PLATELET COUNT 269 x10e3/uL (140-360); RED BLOOD COUNT 3.75 x10e6/uL (4.3-5.7)
[2018-06-10] MEDS: METRONIDAZOLE 500MG/NS 100ML 100 ML IV SCH ×5 (06:00→23:50)
[2018-06-10 06:25] LABS: ALANINE AMINOTRANSFERASE 6 IU/L (0-55); ALBUMIN 1.5 g/dL (3.5-5.0); ALBUMIN/GLOBULIN RATIO 0.4 (0.8-2.0); ALKALINE PHOSPHATASE 93 IU/L (40-150); ANION GAP 11.3 mmol/L (8-16); BLOOD UREA NITROGEN 13 mg/dL (7-26); BUN/CREATININE RATIO 15 (6-25); CALCIUM 7.3 mg/dL (8.4-10.2); CARBON DIOXIDE 23 mmol/L (22-29); CHLORIDE 110 mmol/L (98-107); CREATININE, SERUM 0.84 mg/dL (0.72-1.25); EST GLOMERULAR FILTRATION RATE > 60 ML/MIN (60-); GLUCOSE 159 mg/dL (74-118); POTASSIUM 4.3 mmol/L (3.5-5.1); SODIUM 140 mmol/L (136-145)
[2018-06-10 06:37] LABS: MAGNESIUM 2.3 MG/DL (1.3-2.1); PHOSPHORUS 2.5 MG/DL (2.3-4.7)
[2018-06-10] MEDS ORDERED: CENTRAL TPN FORMULA 1 BAG IV SCH (06:53)
[2018-06-10 07:10] LABS: ANISOCYTOSIS MODERATE; BAND NEUTROPHILS % (MANUAL) 2 %; HOWELL-JOLLY BODIES FEW; HYPOCHROMASIA MODERATE; LYMPHOCYTES % (MANUAL) 8 % (19-48); MONOCYTES % (MANUAL) 5 % (3.4-9.0); NEUTROPHILS % (MANUAL) 83 % (40-74); PLATELET ESTIMATE ADEQUATE; PLATELET MORPHOLOGY COMMENT NORMAL; RBC MORPHOLOGY COMMENT ABNORMAL
[2018-06-10] MEDS: FERROUS SULFATE 325 MG TAB PO SCH ×2 (07:15→16:36)
--- NOTE | 2018-06-10 07:27 | NUR ---
Rcvd patient in report this am. Patient is asleep in bed at this time. No s/s of distress noted. Patient remains NPO at this time.
[2018-06-10] MEDS: PANTOPRAZOLE 40 MG 10ML VIAL IV SCH ×2 (08:11→21:10)
[2018-06-10] MEDS: ONDANSETRON HCL INJ 2 MG/ML VIAL IV PRN (09:37)
[2018-06-10] MEDS: SODIUM CHLORIDE 0.9% 1000ML 1,000 ML IV SCH ×2 (10:14→19:41)
[2018-06-10] MEDS: HYDROCODONE/APAP 7.5MG-325MG 1 EA TAB PO PRN (14:51)
--- NOTE | 2018-06-10 15:21 | NUR ---
Nutrition Intervention Note RD Recommendation for Physician: - Current standard TPN @50mL/hr, providing 1200ml total volume/day, 180g dextrose, 60g AA 10%. Total kcal including lipids of 50gm/week 1045kcal/day. Meets 73% of his est calorie and 75% est protein needs. - Rec increasing dextrose to 250 g/day to more adequately meet kcal needs. - Consider adding thiamine and folic acid in TPN for dextrose metabolism - BMP, Phos, Mag repeat daily; prealbumin, LFT, TG monitor weekly - BG check every 6 hr with corrective dose insulin - Continue with TPN per MD until diet is advanced and intake >50% - Advance diet as tolerated to ADA/ GI soft Plan of Care: RD following, monitoring for tolerance and adequacy, TPN Nutrition reason for involvement: Follow up Primary Diagnose(s): 1. Colon cancer: Status post small-bowel resection and ileostomy placement. 2. Severe microcytic anemia. 3. Acute kidney injury likely secondary to acute tubular necrosis. PMH: CKD, GI bleed, CAD, DM, partial bowel obstruction, PVD, anemia, colon cancer dx in 2016 GI: ileostomy bag is present Skin: mid abdominal incision with jessie intact Labs: (06/10) Ca 7.3 L, Glucose 146 H, Mg 2.3 H (06/08) Ca 8.0 L Meds: TPN, NaCl, Zofran, Protonix Ht: 69in Wt: 183.06lb 06/10 (possibly due to fluids) 177lb 06/08 178lb 06/02 183lb 01/2018 BMI: 26.3kg/m2 IBW: 160lb RD Assessment: (06/10) Chart reviewed. Pt underwent surgical management of leakage from ileostomy on 06/09. Per RN, pt has been doing well after surgery. No more leakage noted. Visited pt in the room. TPN is still running at 50mL/hr. Labs reviewed; no sign of refeeding syndrome at this time. NGT to suction with dark fluids draining. Pt is awake, alert and in no acute distress. Pt has no GI complain. Will continue to monitor and follow. (06/08) Chart reviewed. Pt was discussed during rounds. Pt is post-op day 7. Pt has had leaking from surgical site for over 3 days. Wound care is following. NPO/ clear liquid x 7 days since admission. TPN has been scheduled to start this evening. Pt denies of N/V or abdominal pain at this time. Ileostomy bag is present. Explained the purpose of TPN to family. Will continue to monitor and follow. (06/03) Chart reviewed. Labs and meds reviewed. 72yo M, who is admitted for elective colon resection in the setting of colon cancer. He underwent the procedure with small-bowel resection and ileostomy on 06/01. Diet has been advanced to clear liquid. During my visit, pr reports eating about the same before coming into the hospital. Pt denies any N/V or abdominal pain at this time. Pt reports of ~5lb weight loss in 4 months, which is ~2.7% in 4 months (insignificant). Pt denies any chewing or swallowing difficulty. Will continue to monitor and follow. Malnutrition Evaluation (06/03/18) The patient does not meet criteria for a specified degree of malnutrition at this time. Will re-evaluate at follow-up as appropriate. Weight loss: ~5lb weight loss in 4 months, which is ~2.7% in 4 months (insignificant) Malnutrition Evaluation (06/08) The patient does not meet criteria for a specified degree of malnutrition at this time. Will re-evaluate at follow-up as appropriate. Energy intake: <75% of estimated energy requirements for >7 days Weight loss: Weight stable since admission Fat loss: None Muscle loss: None Nutrition Prescription (Diet Order): NPO Estimated Nutritional Needs: Calories: 1440 1600kcal (18-20kcal/kg/d) Weight used : Actual BW Protein : 80-120g (1-1.5g/kg/d) Weight used: Actual BW Diet Adequacy: Not meeting calorie needs, Not meeting protein needs TPN, post-op Diet Education Needs Assessment: Diet education indicated and patient agreeable. TPN education Nutrition Care Level: moderate Nutrition Diagnosis: Inadequate oral intake related to current medical status as evidenced by pt requiring TPN as main source of nutrition. Goal: Patient will meet 75-100% of estimated needs by follow up Progress: Not progressing Interventions: IVF, Prescription medications, Survival information, Multivitamin/mineral supplement therapy Monitoring/Evaluation: Total energy intake, Total protein intake, IVF, Prescription medication, Weight change Signed: Smiley Bacon, MS, RD, LD
[2018-06-10] MEDS: CENTRAL TPN FORMULA 1 BAG IV SCH (20:30)
[2018-06-11] VITALS (8 sets, daily range): BP systolic 127–141; BP diastolic 61–68
[2018-06-11] MEDS: SODIUM CHLORIDE 0.9% 250ML IRRIG IR SCH ×4 (01:59→13:45)
[2018-06-11] MEDS: HYDROMORPHONE 2MG/ML 2 MG/ML ML IV PRN ×6 (04:00→23:55)
[2018-06-11] MEDS: PIPER-TAZ 3.375 GM 50 ML IV SCH ×4 (05:23→23:50)
[2018-06-11 05:59] LABS: HEMOGLOBIN 8.1 g/dL (14.0-18.0); MEAN CORPUSCULAR HEMOGLOBIN 23.5 pg (28-32); MEAN CORPUSCULAR VOLUME 78.3 fL (81-99); PLATELET COUNT 305 x10e3/uL (140-360); RED BLOOD COUNT 3.45 x10e6/uL (4.3-5.7)
[2018-06-11] MEDS: INSULIN REGULAR, HUMAN 100 UNIT/1 ML 3ML VIAL SQ SCH ×4 (06:00→18:00)
[2018-06-11] MEDS: METRONIDAZOLE 500MG/NS 100ML 100 ML IV SCH ×3 (06:03→18:09)
[2018-06-11] MEDS: SODIUM CHLORIDE 0.9% 1000ML 1,000 ML IV SCH ×2 (06:04→22:06)
[2018-06-11 06:33] LABS: ALANINE AMINOTRANSFERASE 6 IU/L (0-55); ALBUMIN 1.4 g/dL (3.5-5.0); ALBUMIN/GLOBULIN RATIO 0.4 (0.8-2.0); ALKALINE PHOSPHATASE 86 IU/L (40-150); ANION GAP 9.8 mmol/L (8-16); BLOOD UREA NITROGEN 14 mg/dL (7-26); BUN/CREATININE RATIO 17 (6-25); CARBON DIOXIDE 22 mmol/L (22-29); CHLORIDE 112 mmol/L (98-107); CREATININE, SERUM 0.83 mg/dL (0.72-1.25); EST GLOMERULAR FILTRATION RATE > 60 ML/MIN (60-); GLUCOSE 124 mg/dL (74-118); POTASSIUM 3.8 mmol/L (3.5-5.1); SODIUM 140 mmol/L (136-145)
[2018-06-11 06:41] LABS: CALCIUM 6.9 mg/dL (8.4-10.2)
--- NOTE | 2018-06-11 06:44 | NUR ---
INFORMED DR. FOURNIER AT THIS TIME REGARDING PT CALCIUM LEVEL. NO NEW ORDER.
[2018-06-11] MEDS ORDERED: CALCIUM GLUCONATE 10% INJ 13.95 MEQ in SODIUM CHLORIDE 0.9% 100 ML 100 ML IV ONE (07:00)
[2018-06-11] MEDS: FERROUS SULFATE 325 MG TAB PO SCH ×2 (08:00→17:00)
[2018-06-11 08:24] LABS: BAND NEUTROPHILS % (MANUAL) 9 %; LYMPHOCYTES % (MANUAL) 2 % (19-48); MONOCYTES % (MANUAL) 6 % (3.4-9.0); NEUTROPHILS % (MANUAL) 83 % (40-74)
[2018-06-11 08:25] LABS: HYPOCHROMASIA MODERATE; RBC MORPHOLOGY COMMENT ABNORMAL
[2018-06-11 08:26] LABS: OVALOCYTES FEW; TEAR DROP CELLS FEW
[2018-06-11 08:28] LABS: ANISOCYTOSIS MODERATE; POIKILOCYTOSIS SLIGHT
[2018-06-11 08:29] LABS: PLATELET ESTIMATE ADEQUATE; PLATELET MORPHOLOGY COMMENT FEW LARGE
[2018-06-11] MEDS: ONDANSETRON HCL INJ 2 MG/ML VIAL IV PRN (10:30)
[2018-06-11] MEDS: PANTOPRAZOLE 40 MG 10ML VIAL IV SCH ×2 (10:30→20:18)
--- NOTE | 2018-06-11 10:30 | NUR ---
assessment complete no distress noted updated on poc voiced understanding, co pain 02/12 medicated with prn meds, tpn infusing to l port, r fa 20g no ss of infiltration noted, ileostomy with greenish fluid noted, ailyn drain with serosanguineous fluid noted, no other co voiced call light in reach will continue to monitor
--- NOTE | 2018-06-11 10:40 | NUR ---
wound to abdomen cleaned with normal saline, wet to dry dsg applied as per ordered pt tolerated well will continue ot monitor
--- NOTE | 2018-06-11 16:30 | NUR ---
wale dc'd as per ordered, pt tolerated well, 600cc of yellow urine emptied from bag, pt dtv betweeen [phone]
--- NOTE | 2018-06-11 16:54 | NUR ---
ileostomy leaking, changed as per ordered, pt tolerated well.
--- NOTE | 2018-06-11 17:38 | NUR ---
IM- Progress Note O/N; surgery for leak REVIEW OF SYSTEMS: Denies any dizziness, chest pain. Denies any fever, chills or sweats. Denies any nausea, vomiting, headache, vision changes, back pain. PHYSICAL EXAMINATION VITAL SIGNS: Reviewed. GENERAL: NGT; A tired-appearing man resting in bed. HEENT: Anicteric. CARDIOVASCULAR: Normal S1 and S2. LUNGS: Moderate breath sounds. ABDOMEN: SADI drain; Soft and nondistended. He has a midline dressing in place clean and dry. He has right-sided ileostomy in place with pink appearing mucosa. EXTREMITIES: No edema or calf tenderness. NEUROLOGICAL: He is alert and oriented times 3. Moves all extremities. SKIN: Dry. PSYCHIATRIC: Normal affect. LABS: Reviewed. MEDICATIONS: Reviewed. ASSESSMENT: This is a 72-year-old man with: 1. Colon cancer: Status post small-bowel resection and ileostomy placement. 2. Severe microcytic anemia. 3. Acute kidney injury likely secondary to acute tubular necrosis. 4. Diabetes mellitus, type 2. 5. Cigarette use. 6. Coronary artery disease. 7. Diabetic vascular disease. 8. Elevated CEA of 6.6. PLAN 1. He is status post 2 units of packed red blood cell transfusion. His hemoglobin is stable. Will give 3 additional units now. 2. He is status post surgical management. He needs to follow up with his oncologist outpatient. 3. Rehydrate the patient with IV fluids. 4. Continue antibiotics empirically of cefoxitin. 5. Use SCD for DVT prophylaxis. Will add IV PPI q.12 h. 6. Will obtain H and H later today at 4 p.m. 7. Continue Miles at this time. 8. Will keep in the ICU and monitor closely today. Critical care time more than 35 minutes. 06/04 Hba1c 5.3; Add iron supplement; check BMP 06/05 check H/H; Leakage from Sx site- 06/06 monitor; re-eval in am; no pain; check labs in am. d/w family at bedside. 06/07 supportive care; 06/08 continued care; liq diet; may need TPN. 06/09 cont supportive care; replace K using IV 06/10 surgical mgmt of leak; SADI drain and NGT in place; 06/11 hypocalcemia- replace; Rip Zafar MD, PhD.
--- NOTE | 2018-06-11 19:08 | NUR ---
WALKING ROUNDS PERFORMED, RECEIVED PT LAYING SEMI FOWLERS IN BED, AAOX3, LETHARGIC. RR EVEN AND NON-LABORED ON RA. NO S/SX OF DISTRESS NOTED. LEFT PT LAYING SEMI FOWLERS IN BED, BED IN LOW LOCKED POSITION, SIDE RAILS UPX2, CALL LIGHT AND PHONE WITHIN REACH.
[2018-06-11] MEDS: CENTRAL TPN FORMULA 1 BAG IV SCH (20:18)
[2018-06-12] VITALS (7 sets, daily range): BP systolic 128–149; BP diastolic 66–78
--- NOTE | 2018-06-12 | NUR ---
BAG TO ILEOSTOMY CAME DISCONNECTED FROM WAFER. CLEANSED AREA AROUND ILEOSTOMY, APPLIED NEW ILEOSTOMY BAG. CHANGED PT LINENS, CARRIE, AND GOWN. REPOSITIONED PT IN BED.
[2018-06-12] MEDS: METRONIDAZOLE 500MG/NS 100ML 100 ML IV SCH ×4 (00:37→18:00)
[2018-06-12] MEDS: HYDROMORPHONE 2MG/ML 2 MG/ML ML IV PRN ×6 (02:55→22:05)
[2018-06-12] MEDS: SODIUM CHLORIDE 0.9% 1000ML 1,000 ML IV SCH ×3 (03:09→21:41)
[2018-06-12] MEDS: PIPER-TAZ 3.375 GM 50 ML IV SCH ×4 (05:40→23:56)
[2018-06-12] MEDS: INSULIN REGULAR, HUMAN 100 UNIT/1 ML 3ML VIAL SQ SCH ×4 (05:57→18:00)
--- NOTE | 2018-06-12 05:58 | NUR ---
DRESSING TO ANTERIOR ABD CHANGED. WET TO DRY DRESSING APPLIED.
[2018-06-12] MEDS: PANTOPRAZOLE 40 MG 10ML VIAL IV SCH ×2 (10:18→21:59)
[2018-06-12] MEDS: FERROUS SULFATE 325 MG TAB PO SCH ×2 (10:18→17:30)
[2018-06-12 16:09] LABS: ANION GAP 10.1 mmol/L (8-16); BLOOD UREA NITROGEN 12 mg/dL (7-26); BUN/CREATININE RATIO 15 (6-25); CALCIUM 7.1 mg/dL (8.4-10.2); CARBON DIOXIDE 22 mmol/L (22-29); CHLORIDE 111 mmol/L (98-107); CREATININE, SERUM 0.81 mg/dL (0.72-1.25); EST GLOMERULAR FILTRATION RATE > 60 ML/MIN (60-); GLUCOSE 133 mg/dL (74-118); POTASSIUM 4.1 mmol/L (3.5-5.1); SODIUM 139 mmol/L (136-145)
--- NOTE | 2018-06-12 19:14 | NUR ---
WALKING ROUNDS PERFORMED, RECEIVED PT LAYING SEMI FOWLERS IN BED, AAOX3, RR EVEN AND NON-LABORED, ON RA. NO S/SX OF DISTRESS NOTED. TPN FLOWING TO (L) PORT A CATH. DRESSING TO ANTERIOR ABD NOTED TO BE CDI. (R) ILEOSTOMY CDI, (L) ANTERIOR ABD SADI DRAIN INTACT. LEFT PT LAYING SEMI FOWLERS IN BED, BED IN LOW LOCKED POSITION, SIDE RAILS UPX2, CALL LIGHT AND PHONE WITHIN REACH. FAMILY AT BEDSIDE.
[2018-06-12] MEDS ORDERED: CENTRAL TPN FORMULA 1 BAG IV SCH (20:00)
--- NOTE | 2018-06-12 22:08 | NUR ---
DRESSING TO ANTERIOR ABD CHANGED AT THIS TIME. APPLIED WET TO DRY, SECURED WITH MICROFOAM.
[2018-06-13] VITALS (7 sets, daily range): BP systolic 131–159; BP diastolic 67–69
[2018-06-13] MEDS: METRONIDAZOLE 500MG/NS 100ML 100 ML IV SCH ×5 (00:45→23:32)
[2018-06-13] MEDS: HYDROMORPHONE 2MG/ML 2 MG/ML ML IV PRN (02:53)
[2018-06-13] MEDS: SODIUM CHLORIDE 0.9% 1000ML 1,000 ML IV SCH ×2 (04:32→16:30)
[2018-06-13] MEDS: PIPER-TAZ 3.375 GM 50 ML IV SCH ×3 (05:35→18:10)
--- NOTE | 2018-06-13 05:35 | NUR ---
IM- Progress Note O/N; surgery for leak REVIEW OF SYSTEMS: Denies any dizziness, chest pain. Denies any fever, chills or sweats. Denies any nausea, vomiting, headache, vision changes, back pain. PHYSICAL EXAMINATION VITAL SIGNS: Reviewed. GENERAL: A tired-appearing man resting in bed. HEENT: Anicteric. CARDIOVASCULAR: Normal S1 and S2. LUNGS: Moderate breath sounds. ABDOMEN: SADI drain; Soft and nondistended. He has a midline dressing in place clean and dry. He has right-sided ileostomy in place with pink appearing mucosa. EXTREMITIES: No edema or calf tenderness. NEUROLOGICAL: He is alert and oriented times 3. Moves all extremities. SKIN: Dry. PSYCHIATRIC: Normal affect. LABS: Reviewed. MEDICATIONS: Reviewed. ASSESSMENT: This is a 72-year-old man with: 1. Colon cancer: Status post small-bowel resection and ileostomy placement. 2. Severe microcytic anemia. 3. Acute kidney injury likely secondary to acute tubular necrosis. 4. Diabetes mellitus, type 2. 5. Cigarette use. 6. Coronary artery disease. 7. Diabetic vascular disease. 8. Elevated CEA of 6.6. PLAN 1. He is status post 2 units of packed red blood cell transfusion. His hemoglobin is stable. Will give 3 additional units now. 2. He is status post surgical management. He needs to follow up with his oncologist outpatient. 3. Rehydrate the patient with IV fluids. 4. Continue antibiotics empirically of cefoxitin. 5. Use SCD for DVT prophylaxis. Will add IV PPI q.12 h. 6. Will obtain H and H later today at 4 p.m. 7. Continue Miles at this time. 8. Will keep in the ICU and monitor closely today. Critical care time more than 35 minutes. 06/04 Hba1c 5.3; Add iron supplement; check BMP 06/05 check H/H; Leakage from Sx site- 06/06 monitor; re-eval in am; no pain; check labs in am. d/w family at bedside. 06/07 supportive care; 06/08 continued care; liq diet; may need TPN. 06/09 cont supportive care; replace K using IV 06/10 surgical mgmt of leak; SADI drain and NGT in place; 06/11 hypocalcemia- replace; 06/12 check lytes; 06/13 doing ok; NGT out; on TPN. SADI drain in place. Rip Zafar MD, PhD.
[2018-06-13] MEDS: INSULIN REGULAR, HUMAN 100 UNIT/1 ML 3ML VIAL SQ SCH ×4 (06:00→18:00)
[2018-06-13] MEDS: HYDROCODONE/APAP 7.5MG-325MG 1 EA TAB PO PRN ×4 (06:05→19:30)
[2018-06-13] MEDS: FERROUS SULFATE 325 MG TAB PO SCH ×2 (08:51→16:30)
[2018-06-13] MEDS: PANTOPRAZOLE 40 MG 10ML VIAL IV SCH ×2 (08:51→21:00)
--- NOTE | 2018-06-13 08:51 | NUR ---
assessment complete no distress noted,updated on poc voiced understanding, denies pain at this time, dsg to abdomen c/d/i, tpn infusing to l port, r fa 20g no ss of infiltration noted, ailyn drain with serosanguineous fluid noted, ileostomy with green fluid noted, no other co voiced call light in reach will continue to monitor
--- NOTE | 2018-06-13 15:30 | NUR ---
wound care performed as per ordered, wound cleansed with normal saline, wet to dry dsg applied secured with tape, tolerated well,
--- NOTE | 2018-06-13 18:20 | NUR ---
up to chair with assistance.
[2018-06-13] MEDS ORDERED: CENTRAL TPN FORMULA 1 BAG IV SCH (20:00)
--- NOTE | 2018-06-13 20:00 | NUR ---
INITIAL ASSESSMENT COMPLETE, DRESSING CDI, ILLIOSTOMY INTACT, SADI DRAIN DRAINING SEROUS FLUID, TPN INFUSING, IV INFUSING, NO DISTRESS NOTED, CALL LIGHT IN REACH, TOLD TO CALL FOR NEEDS
[2018-06-14] VITALS (7 sets, daily range): BP systolic 122–139; BP diastolic 62–70
[2018-06-14] MEDS: HYDROCODONE/APAP 7.5MG-325MG 1 EA TAB PO PRN ×5 (05:14→21:45)
[2018-06-14] MEDS: METRONIDAZOLE 500MG/NS 100ML 100 ML IV SCH ×3 (05:32→17:33)
[2018-06-14 05:33] LABS: BASOPHILS % 0.3 % (0.0-1.0); EOSINOPHILS # (AUTO) 0.2 (0.0-0.4); EOSINOPHILS % 1.8 % (0.0-6.0); HEMATOCRIT 26.6 % (38.2-49.6); LYMPHOCYTES # (AUTO) 1.2 (1.0-3.2); LYMPHOCYTES % 11.6 % (18.0-39.1); MEAN CORPUSCULAR HEMOGLOBIN 23.4 pg (28-32); MEAN CORPUSCULAR HGB CONC 29.7 g/dL (31-35); MEAN CORPUSCULAR VOLUME 78.9 fL (81-99); MONOCYTES # (AUTO) 0.7 (0.2-0.8); MONOCYTES % 6.5 % (4.4-11.3); NEUTROPHILS # (AUTO) 8.2 (2.1-6.9); NEUTROPHILS % 78.8 % (38.7-80.0); PLATELET COUNT 471 x10e3/uL (140-360); RED BLOOD COUNT 3.37 x10e6/uL (4.3-5.7); RED CELL DISTRIBUTION WIDTH 27.2 % (11.7-14.4)
[2018-06-14] MEDS: SODIUM CHLORIDE 0.9% 1000ML 1,000 ML IV SCH ×3 (05:33→17:19)
[2018-06-14 05:37] LABS: HEMOGLOBIN 7.9 g/dL (14.0-18.0)
[2018-06-14 05:48] LABS: ALANINE AMINOTRANSFERASE 6 IU/L (0-55); ALBUMIN 1.4 g/dL (3.5-5.0); ALBUMIN/GLOBULIN RATIO 0.4 (0.8-2.0); ALKALINE PHOSPHATASE 72 IU/L (40-150); ANION GAP 9.7 mmol/L (8-16); BLOOD UREA NITROGEN 8 mg/dL (7-26); BUN/CREATININE RATIO 10 (6-25); CARBON DIOXIDE 20 mmol/L (22-29); CHLORIDE 107 mmol/L (98-107); CREATININE, SERUM 0.77 mg/dL (0.72-1.25); EST GLOMERULAR FILTRATION RATE > 60 ML/MIN (60-); GLUCOSE 120 mg/dL (74-118); MAGNESIUM 1.9 MG/DL (1.3-2.1); POTASSIUM 3.7 mmol/L (3.5-5.1); SODIUM 133 mmol/L (136-145); TRIGLYCERIDES 75 MG/DL (0-149)
[2018-06-14] MEDS: INSULIN REGULAR, HUMAN 100 UNIT/1 ML 3ML VIAL SQ SCH ×4 (06:00→17:03)
[2018-06-14] MEDS: PIPER-TAZ 3.375 GM 50 ML IV SCH ×4 (06:00→18:26)
[2018-06-14] MEDS ORDERED: CENTRAL TPN FORMULA 1 BAG IV SCH ×2 (06:39→20:00)
[2018-06-14 06:44] LABS: BAND NEUTROPHILS % (MANUAL) 6 %; EOSINOPHILS % (MANUAL) 1 % (0-7); LYMPHOCYTES % (MANUAL) 5 % (19-48); MONOCYTES % (MANUAL) 4 % (3.4-9.0); NEUTROPHILS % (MANUAL) 80 % (40-74); PROMYELOCYTES % (MANUAL) 1 % (0-0)
[2018-06-14 06:45] LABS: HYPOCHROMASIA SLIGHT; PLATELET ESTIMATE SLIGHTLY INCREASED; PLATELET MORPHOLOGY COMMENT FEW LARGE; RBC MORPHOLOGY COMMENT ABNORMAL
--- NOTE | 2018-06-14 06:45 | NUR ---
PT AWAKE, WALKING ROUNDS DONE, VS STABLE, CALL LIGHT IN REACH, NO DISTRESS NOTED
[2018-06-14 06:46] LABS: ANISOCYTOSIS SLIG; ELLIPTOCYTE, RBC SLIGHT; OVALOCYTES FEW; POIKILOCYTOSIS MODERATE; TEAR DROP CELLS FEW
--- NOTE | 2018-06-14 07:21 | NUR ---
Rcvd patient in report this am. Patient is asleep in bed at this time. NO s/s of distress noted
--- NOTE | 2018-06-14 07:26 | NUR ---
IM- Progress Note O/N; surgery for leak REVIEW OF SYSTEMS: Denies any dizziness, chest pain. Denies any fever, chills or sweats. Denies any nausea, vomiting, headache, vision changes, back pain. PHYSICAL EXAMINATION VITAL SIGNS: Reviewed. GENERAL: A tired-appearing man resting in bed. HEENT: Anicteric. CARDIOVASCULAR: Normal S1 and S2. LUNGS: Moderate breath sounds. ABDOMEN: SADI drain; Soft and nondistended. He has a midline dressing in place clean and dry. He has right-sided ileostomy in place with pink appearing mucosa. EXTREMITIES: No edema or calf tenderness. NEUROLOGICAL: He is alert and oriented times 3. Moves all extremities. SKIN: Dry. PSYCHIATRIC: Normal affect. LABS: Reviewed. MEDICATIONS: Reviewed. ASSESSMENT: This is a 72-year-old man with: 1. Colon cancer: Status post small-bowel resection and ileostomy placement. 2. Severe microcytic anemia. 3. Acute kidney injury likely secondary to acute tubular necrosis. 4. Diabetes mellitus, type 2. 5. Cigarette use. 6. Coronary artery disease. 7. Diabetic vascular disease. 8. Elevated CEA of 6.6. PLAN 1. He is status post 2 units of packed red blood cell transfusion. His hemoglobin is stable. Will give 3 additional units now. 2. He is status post surgical management. He needs to follow up with his oncologist outpatient. 3. Rehydrate the patient with IV fluids. 4. Continue antibiotics empirically of cefoxitin. 5. Use SCD for DVT prophylaxis. Will add IV PPI q.12 h. 6. Will obtain H and H later today at 4 p.m. 7. Continue Miles at this time. 8. Will keep in the ICU and monitor closely today. Critical care time more than 35 minutes. 06/04 Hba1c 5.3; Add iron supplement; check BMP 06/05 check H/H; Leakage from Sx site- 06/06 monitor; re-eval in am; no pain; check labs in am. d/w family at bedside. 06/07 supportive care; 06/08 continued care; liq diet; may need TPN. 06/09 cont supportive care; replace K using IV 06/10 surgical mgmt of leak; SADI drain and NGT in place; 06/11 hypocalcemia- replace; 06/12 check lytes; 06/13 doing ok; NGT out; on TPN. SADI drain in place. 06/14 Enterococcus faecalis and Enterobacter cloacae infection of abdominal wound- continue zosyn. Nutritional support. Needs continued wound care and nutrition; SNF may not be feasible this time; D/W Daisy; Rip Zafar MD, PhD.
[2018-06-14] MEDS: FERROUS SULFATE 325 MG TAB PO SCH ×2 (08:31→17:33)
[2018-06-14] MEDS: PANTOPRAZOLE 40 MG 10ML VIAL IV SCH ×2 (08:31→20:22)
--- NOTE | 2018-06-14 15:08 | NUR ---
INDIA SPOKE WITH DR FOURNIER WHO SPOKE WITH DR AGUIRRE BOTH AGREE THAT LTAC WOULD BE APPROPRIATE LEVEL OF CARE FOR THIS PT ORDERS FOR LTAC EVAL INDIA WENT TO SPEAK WITH PT, AND SON IN PT'S ROOM EXPLAINED PHYSICIAN'S RECOMMENDATION FOR LTAC THEY UNDERSTAND AND AGREE TO [facility] BUT REFUSE TO SIGN CHOICE LETTER UNTIL DAUGHTER JOSE GETS TO HOSPITAL PT'S NURSE ROSALIE SPOKE WITH JOSE WHO IS ON HER WAY TO HOSPITAL NOW LEFT MY CARD WITH PHONE NUMBER AT BEDSIDE FOR JOSE TO CALL ME WHEN SHE GETS HERE
--- NOTE | 2018-06-14 17:30 | NUR ---
Nutrition Intervention Note RD Recommendation for Physician: - Current standard TPN @50mL/hr, providing 1200ml total volume/day, 180g dextrose, 60g AA 10%. Total kcal including lipids of 50gm/week 1045kcal/day. Meets 73% of his est calorie and 75% est protein needs. - Rec increasing dextrose to 250 g/day to more adequately meet kcal needs. - Consider adding thiamine and folic acid in TPN for dextrose metabolism - BMP, Phos, Mag repeat daily; prealbumin, LFT, TG monitor weekly - BG check every 6 hr with corrective dose insulin - Continue with TPN per MD until diet is advanced and intake >50% - Advance diet as tolerated to ADA/ GI soft - Rec MVi w/ minerals and vitamin C for wound healing; discussed with RN - Rec Per BID to support healing; discussed with RN - Consult wound care for wound management Plan of Care: RD following, monitoring for tolerance and adequacy, ONS rec Nutrition reason for involvement: Follow up Primary Diagnose(s): 1. Colon cancer: Status post small-bowel resection and ileostomy placement. 2. Severe microcytic anemia. 3. Acute kidney injury likely secondary to acute tubular necrosis. PMH: CKD, GI bleed, CAD, DM, partial bowel obstruction, PVD, anemia, colon cancer dx in 2016 GI: ileostomy bag is present Skin: mid abdominal surgical wound (open wound per RN) Labs: (06/14) Na 133 L, Glucose 140 H, Ca 7 L, Phosphorus 1.9 L (06/10) Ca 7.3 L, Glucose 146 H, Mg 2.3 H (06/08) Ca 8.0 L Meds: TPN, feosol, protonix, NaCl Ht: 69in Wt: 183.06lb 06/10 (possibly due to fluids) 177lb 06/08 178lb 06/02 183lb 01/2018 BMI: 26.3kg/m2 IBW: 160lb RD Assessment: (06/14) Chart reviewed. Pt was discussed during rounds. Per RN, pt had open surgical wound on abdomen. RD rec supplements for wound healing; discussed with RN. During my visit, pt reports tolerance of full liquid diet. TPN is still running. No GI complains noted. Colostomy bag is present . Pt is awake, alert and in no acute distress. Labs reviewed; RD does not suspect any refeeding syndrome at this time. Will continue to monitor and follow. (06/10) Chart reviewed. Pt underwent surgical management of leakage from ileostomy on 06/09. Per RN, pt has been doing well after surgery. No more leakage noted. Visited pt in the room. TPN is still running at 50mL/hr. Labs reviewed; no sign of refeeding syndrome at this time. NGT to suction with dark fluids draining. Pt is awake, alert and in no acute distress. Pt has no GI complain. Will continue to monitor and follow. (06/08) Chart reviewed. Pt was discussed during rounds. Pt is post-op day 7. Pt has had leaking from surgical site for over 3 days. Wound care is following. NPO/ clear liquid x 7 days since admission. TPN has been scheduled to start this evening. Pt denies of N/V or abdominal pain at this time. Ileostomy bag is present. Explained the purpose of TPN to family. Will continue to monitor and follow. (06/03) Chart reviewed. Labs and meds reviewed. 72yo M, who is admitted for elective colon resection in the setting of colon cancer. He underwent the procedure with small-bowel resection and ileostomy on 06/01. Diet has been advanced to clear liquid. During my visit, pr reports eating about the same before coming into the hospital. Pt denies any N/V or abdominal pain at this time. Pt reports of ~5lb weight loss in 4 months, which is ~2.7% in 4 months (insignificant). Pt denies any chewing or swallowing difficulty. Will continue to monitor and follow. Malnutrition Evaluation (06/03/18) The patient does not meet criteria for a specified degree of malnutrition at this time. Will re-evaluate at follow-up as appropriate. Weight loss: ~5lb weight loss in 4 months, which is ~2.7% in 4 months (insignificant) Malnutrition Evaluation (06/08) The patient does not meet criteria for a specified degree of malnutrition at this time. Will re-evaluate at follow-up as appropriate. Energy intake: <75% of estimated energy requirements for >7 days Weight loss: Weight stable since admission Fat loss: None Muscle loss: None Nutrition Prescription (Diet Order): Full liquid diet Estimated Nutritional Needs: Calories: 1440 1600kcal (18-20kcal/kg/d) Weight used : Actual BW Protein : 80-120g (1-1.5g/kg/d) Weight used: Actual BW Diet Adequacy: N/A Diet Education Needs Assessment: Diet education indicated and patient agreeable. TPN education Nutrition Care Level: moderate Nutrition Diagnosis: Inadequate oral intake related to current medical status as evidenced by pt requiring TPN as main source of nutrition. Goal: Patient will meet 75-100% of estimated needs by follow up Progress: Some progress Interventions: GI soft diet, IVF, Prescription medications, Commercial foods, Survival information, Multivitamin/mineral supplement therapy Monitoring/Evaluation: Total energy intake, Total protein intake, IVF, Prescription medication, Modified diet, Supplements, Weight change Signed: Smiley Bacon MS, RD, LD
[2018-06-15] VITALS (7 sets, daily range): BP systolic 127–149; BP diastolic 63–76
[2018-06-15] MEDS: PIPER-TAZ 3.375 GM 50 ML IV SCH ×4 (00:54→17:57)
[2018-06-15] MEDS: METRONIDAZOLE 500MG/NS 100ML 100 ML IV SCH ×4 (01:04→17:57)
[2018-06-15] MEDS: SODIUM CHLORIDE 0.9% 1000ML 1,000 ML IV SCH ×3 (05:08→19:41)
[2018-06-15] MEDS: INSULIN REGULAR, HUMAN 100 UNIT/1 ML 3ML VIAL SQ SCH ×5 (05:50→21:00)
[2018-06-15] MEDS: HYDROCODONE/APAP 7.5MG-325MG 1 EA TAB PO PRN ×3 (06:25→20:59)
[2018-06-15 06:54] LABS: ANION GAP 8.6 mmol/L (8-16); BLOOD UREA NITROGEN 7 mg/dL (7-26); BUN/CREATININE RATIO 9 (6-25); CARBON DIOXIDE 20 mmol/L (22-29); CHLORIDE 108 mmol/L (98-107); CREATININE, SERUM 0.76 mg/dL (0.72-1.25); EST GLOMERULAR FILTRATION RATE > 60 ML/MIN (60-); GLUCOSE 127 mg/dL (74-118); MAGNESIUM 1.9 MG/DL (1.3-2.1); PHOSPHORUS 1.8 MG/DL (2.3-4.7); POTASSIUM 3.6 mmol/L (3.5-5.1); SODIUM 133 mmol/L (136-145)
--- NOTE | 2018-06-15 07:40 | NUR ---
Rcvd patient in report this am. Patient is assisted up to chair at this time. No s/s of distress noted
[2018-06-15] MEDS: FERROUS SULFATE 325 MG TAB PO SCH ×2 (08:30→17:57)
[2018-06-15] MEDS: PANTOPRAZOLE 40 MG 10ML VIAL IV SCH ×2 (08:30→20:38)
--- NOTE | 2018-06-15 09:49 | NUR ---
Call placed to Dr. Díaz regarding pain medications. Pain not controlled at this time. Dressing changed to abdomen area. Wound culture collected
[2018-06-15] MEDS ORDERED: HYDROCODONE/APAP 7.5MG-325MG 1 EA TAB PO ONE (10:30)
--- NOTE | 2018-06-15 10:59 | NUR ---
Patient is AAOx3. Patient is post op exploratory lap with repair of small bowel perforation. Patient lung simental clear to auscultation. Bowel sounds present x4. right sided ileostomy in place. Dark loose liquid stool noted in bag. Dressing changed to abdominal wound. Moderate amount of drainage noted. Wet to dry sterile technique provided. Patient c/o pain. Call placed to MD and new orders for pain meds received. Patient tolerated his regular diet this am. No nausea or vomiting noted. patient remains on TPN
--- NOTE | 2018-06-15 11:55 | NUR ---
CM SPOKE WITH DAUGHTER JOSE WHO STATES SHE AND HER FATHER ARE AGREEABLE WITH [facility] CHOICE LETTER SIGNED RAMAN WITH [facility] NOTIFIED OF CONSULT
[2018-06-15] MEDS ORDERED: CENTRAL TPN FORMULA 1 BAG IV SCH (20:00)
[2018-06-16] VITALS (7 sets, daily range): BP systolic 105–138; BP diastolic 58–73
[2018-06-16] MEDS: PIPER-TAZ 3.375 GM 50 ML IV SCH ×3 (00:53→13:00)
[2018-06-16] MEDS: HYDROCODONE/APAP 7.5MG-325MG 1 EA TAB PO PRN ×4 (00:53→18:35)
[2018-06-16] MEDS: METRONIDAZOLE 500MG/NS 100ML 100 ML IV SCH ×4 (01:00→20:39)
[2018-06-16] MEDS: SODIUM CHLORIDE 0.9% 1000ML 1,000 ML IV SCH ×3 (05:41→22:28)
[2018-06-16 05:59] LABS: BASOPHILS % 0.2 % (0.0-1.0); EOSINOPHILS # (AUTO) 0.2 (0.0-0.4); EOSINOPHILS % 1.8 % (0.0-6.0); HEMATOCRIT 26.6 % (38.2-49.6); HEMOGLOBIN 7.7 g/dL (14.0-18.0); LYMPHOCYTES % 9.2 % (18.0-39.1); MEAN CORPUSCULAR HEMOGLOBIN 23.1 pg (28-32); MEAN CORPUSCULAR HGB CONC 28.9 g/dL (31-35); MEAN CORPUSCULAR VOLUME 79.9 fL (81-99); MONOCYTES # (AUTO) 0.6 (0.2-0.8); MONOCYTES % 5.4 % (4.4-11.3); NEUTROPHILS # (AUTO) 8.5 (2.1-6.9); NEUTROPHILS % 82.6 % (38.7-80.0); PLATELET COUNT 584 x10e3/uL (140-360); RED BLOOD COUNT 3.33 x10e6/uL (4.3-5.7)
[2018-06-16 06:09] LABS: ALANINE AMINOTRANSFERASE 7 IU/L (0-55); ALBUMIN 1.3 g/dL (3.5-5.0); ALBUMIN/GLOBULIN RATIO 0.3 (0.8-2.0); ALKALINE PHOSPHATASE 105 IU/L (40-150); ANION GAP 9.6 mmol/L (8-16); BLOOD UREA NITROGEN 8 mg/dL (7-26); BUN/CREATININE RATIO 11 (6-25); CALCIUM 7.2 mg/dL (8.4-10.2); CARBON DIOXIDE 21 mmol/L (22-29); CHLORIDE 106 mmol/L (98-107); CREATININE, SERUM 0.75 mg/dL (0.72-1.25); EST GLOMERULAR FILTRATION RATE > 60 ML/MIN (60-); GLUCOSE 128 mg/dL (74-118); POTASSIUM 3.6 mmol/L (3.5-5.1); SODIUM 133 mmol/L (136-145)
[2018-06-16 06:33] LABS: BAND NEUTROPHILS % (MANUAL) 4 %; EOSINOPHILS % (MANUAL) 1 % (0-7); LYMPHOCYTES % (MANUAL) 9 % (19-48); MONOCYTES % (MANUAL) 3 % (3.4-9.0); NEUTROPHILS % (MANUAL) 83 % (40-74)
[2018-06-16 06:34] LABS: PLATELET ESTIMATE MODERATELY INCREASED; PLATELET MORPHOLOGY COMMENT FEW LARGE; POLYCHROMASIA S; RBC MORPHOLOGY COMMENT ABNORMAL
[2018-06-16 06:35] LABS: ANISOCYTOSIS MODERATE; HYPOCHROMASIA MODERATE; OVALOCYTES FEW; POIKILOCYTOSIS MODERATE
[2018-06-16] MEDS: VANCOMYCIN 1GM/NS 250 ML 250 ML IV SCH ×2 (07:14→18:34)
[2018-06-16] MEDS: INSULIN REGULAR, HUMAN 100 UNIT/1 ML 3ML VIAL SQ SCH ×6 (07:30→21:23)
--- NOTE | 2018-06-16 07:56 | NUR ---
IM- Progress Note O/N; surgery for leak REVIEW OF SYSTEMS: Denies any dizziness, chest pain. Denies any fever, chills or sweats. Denies any nausea, vomiting, headache, vision changes, back pain. PHYSICAL EXAMINATION VITAL SIGNS: Reviewed. GENERAL: A tired-appearing man resting in bed. HEENT: Anicteric. CARDIOVASCULAR: Normal S1 and S2. LUNGS: Moderate breath sounds. ABDOMEN: SADI drain; Soft and nondistended. He has a midline dressing in place clean and dry. He has right-sided ileostomy in place with pink appearing mucosa. EXTREMITIES: No edema or calf tenderness. NEUROLOGICAL: He is alert and oriented times 3. Moves all extremities. SKIN: Dry. PSYCHIATRIC: Normal affect. LABS: Reviewed. MEDICATIONS: Reviewed. ASSESSMENT: This is a 72-year-old man with: 1. Colon cancer: Status post small-bowel resection and ileostomy placement. 2. Severe microcytic anemia. 3. Acute kidney injury likely secondary to acute tubular necrosis. 4. Diabetes mellitus, type 2. 5. Cigarette use. 6. Coronary artery disease. 7. Diabetic vascular disease. 8. Elevated CEA of 6.6. PLAN 1. He is status post 2 units of packed red blood cell transfusion. His hemoglobin is stable. Will give 3 additional units now. 2. He is status post surgical management. He needs to follow up with his oncologist outpatient. 3. Rehydrate the patient with IV fluids. 4. Continue antibiotics empirically of cefoxitin. 5. Use SCD for DVT prophylaxis. Will add IV PPI q.12 h. 6. Will obtain H and H later today at 4 p.m. 7. Continue Miles at this time. 8. Will keep in the ICU and monitor closely today. Critical care time more than 35 minutes. 06/04 Hba1c 5.3; Add iron supplement; check BMP 06/05 check H/H; Leakage from Sx site- 06/06 monitor; re-eval in am; no pain; check labs in am. d/w family at bedside. 06/07 supportive care; 06/08 continued care; liq diet; may need TPN. 06/09 cont supportive care; replace K using IV 06/10 surgical mgmt of leak; SADI drain and NGT in place; 06/11 hypocalcemia- replace; 06/12 check lytes; 06/13 doing ok; NGT out; on TPN. SADI drain in place. 06/14 Enterococcus faecalis and Enterobacter cloacae infection of abdominal wound- continue zosyn. Nutritional support. Needs continued wound care and nutrition; SNF may not be feasible this time; D/W DrGelber; 06/15 check electrolytes; cont LWC; d/w family at bedside; 06/16 Hb continues to fall, now 7.7, will tranfuse if <7; IV access for IV zosyn. Rip Zafar MD, PhD.
[2018-06-16] MEDS: FERROUS SULFATE 325 MG TAB PO SCH ×2 (09:30→18:30)
[2018-06-16] MEDS: PANTOPRAZOLE 40 MG 10ML VIAL IV SCH ×2 (09:30→20:39)
--- NOTE | 2018-06-16 09:43 | NUR ---
MEDICATED PER MD ORDER FOR 4/10 ABD PAIN, PT EDUCATED TO NOT GET OOB WITHOUT CALLING FOR ASSISTANCE, PT VERBALIZED UNDERSTANDING
--- NOTE | 2018-06-16 14:00 | NUR ---
AMBULATED WITH PHYSICAL THERAPIST TO NURSES STATION AND BACK TO ROOM, TOLERATED WELL, MEDICATED PER MD ORDER FOR PAIN
--- NOTE | 2018-06-16 15:10 | NUR ---
SPOKE WITH PT DAUGHTER JOSE, GAVE HER OPTIONS IN NETWORK. EDUCATED THAT DR FOURNIER WOULD BE ABLE TO CONTINUE SERVICE AT [facility] [address] BY THE SOCIAL SECURITY OFFICE, MEDICAL RESORT [address] WITH EITHER DR SEPULVEDA OR DR BORGES OR [facility], SHE WILL GO LOOK AT ALL FACILITIES AND CALL FREDERIC OR MYSELF BACK WITH CHOICE FOR SNF.
--- NOTE | 2018-06-16 18:41 | NUR ---
PT STILL REFUSING TO HAVE DRESSING CHANGED WITH IN ROOM, STATES "DAUGHTER WILL BE BACK TO TAKE HER OUT IN LITTLE WHILE", MEDICATED PER MD ORDER FOR 5/10 ABD PAIN, EDUCATED TO NOT GET OOB WITHOUT CALLING FOR ASSISTANCE, PT VERBALIZED UNDERSTANDING, SITTING AT BS, CALL LIGHT WITHIN REACH
--- NOTE | 2018-06-16 19:54 | Diagnostic Imaging Report ---
EXAMINATION: CHEST XRAY LINE PLACEMENT INDICATION: ^PICC LINE PLACEMENT ^[id number] ^1938 ^Y COMPARISON: [facility] 12 10/08/2017 FINDINGS: AP view TUBES and LINES: Left-sided chest port with tip overlying the cavoatrial junction. Right PICC with tip overlying the cavoatrial junction. LUNGS: Lungs are well inflated. Mild bilateral central pulmonary congestion. No lobar consolidations. Minimal atelectasis in the left lower lobe. PLEURA: No pleural effusion or pneumothorax. HEART AND MEDIASTINUM: Mild enlargement of the cardiac silhouette. BONES AND SOFT TISSUES: Status post median sternotomy. The top wire is broken with few fragments displaced into the right apex. Soft tissues are unremarkable. UPPER ABDOMEN: No free air under the diaphragm. IMPRESSION: Right PICC with tip overlying the cavoatrial junction. No pneumothorax. Bilateral central pulmonary vascular congestion. Signed by: Dr. Tavia Kaur M.D. on 06/16/2018 7:51 PM
--- NOTE | 2018-06-16 21:18 | NUR ---
Per MD order wound dressing to abdomen changed. Patient tolerate well.
[2018-06-17] VITALS (7 sets, daily range): BP systolic 131–153; BP diastolic 65–77
[2018-06-17] MEDS: PIPER-TAZ 3.375 GM 50 ML IV SCH ×4 (00:45→16:54)
[2018-06-17] MEDS: HYDROCODONE/APAP 7.5MG-325MG 1 EA TAB PO PRN ×5 (00:45→21:09)
[2018-06-17] MEDS: METRONIDAZOLE 500MG/NS 100ML 100 ML IV SCH ×4 (02:09→21:09)
[2018-06-17 06:11] LABS: ALANINE AMINOTRANSFERASE 8 IU/L (0-55); ALBUMIN 1.4 g/dL (3.5-5.0); ALBUMIN/GLOBULIN RATIO 0.3 (0.8-2.0); ALKALINE PHOSPHATASE 104 IU/L (40-150); BLOOD UREA NITROGEN 7 mg/dL (7-26); BUN/CREATININE RATIO 10 (6-25); CALCIUM 7.4 mg/dL (8.4-10.2); CARBON DIOXIDE 20 mmol/L (22-29); CHLORIDE 106 mmol/L (98-107); CREATININE, SERUM 0.72 mg/dL (0.72-1.25); EST GLOMERULAR FILTRATION RATE > 60 ML/MIN (60-); GLUCOSE 84 mg/dL (74-118); SODIUM 133 mmol/L (136-145)
[2018-06-17] MEDS: VANCOMYCIN 1GM/NS 250 ML 250 ML IV SCH ×2 (06:15→21:09)
--- NOTE | 2018-06-17 06:16 | NUR ---
Per MD order dressing to abdomen changed. Patient tolerated well.
[2018-06-17] MEDS ORDERED: FLUCONAZOLE 100 MG/NS 50 ML 50 ML IV SCH (07:00)
[2018-06-17] MEDS: INSULIN REGULAR, HUMAN 100 UNIT/1 ML 3ML VIAL SQ SCH ×4 (07:30→21:00)
[2018-06-17] MEDS: PANTOPRAZOLE 40 MG 10ML VIAL IV SCH ×2 (08:39→21:09)
[2018-06-17] MEDS: FERROUS SULFATE 325 MG TAB PO SCH ×2 (08:39→16:50)
[2018-06-17] MEDS: FLUCONAZOLE 100 MG/NS 50 ML 50 ML IV SCH (10:01)
[2018-06-17] MEDS: SODIUM CHLORIDE 0.9% 1000ML 1,000 ML IV SCH ×2 (12:17→14:45)
--- NOTE | 2018-06-17 17:29 | NUR ---
Nutrition Intervention Note RD Recommendation for Physician: - Continue current diet order - Consider Ensure Enlive to promote PO intake - Rec MVi w/ minerals and vitamin C for wound healing; discussed with RN - Rec 2pkt beneprotein to support healing; discussed with RN - Consult wound care for wound management Plan of Care: RD following, monitoring for tolerance and adequacy, ONS rec Nutrition reason for involvement: Follow up Primary Diagnose(s): 1. Colon cancer: Status post small-bowel resection and ileostomy placement. 2. Severe microcytic anemia. 3. Acute kidney injury likely secondary to acute tubular necrosis. PMH: CKD, GI bleed, CAD, DM, partial bowel obstruction, PVD, anemia, colon cancer dx in 2016 GI: ileostomy bag is present Skin: mid abdominal surgical wound (open wound per RN) Labs: (06/17) Na 133 L, Ca 7.4 L (06/14) Na 133 L, Glucose 140 H, Ca 7 L, Phosphorus 1.9 L (06/10) Ca 7.3 L, Glucose 146 H, Mg 2.3 H (06/08) Ca 8.0 L Meds: feosol, NaCl, protonix, vancomycin Ht: 69in Wt: 173lb 06/17 183.06lb 06/10 (possibly due to fluids) 177lb 06/08 178lb 06/02 183lb 01/2018 BMI: 26.3kg/m2 IBW: 160lb RD Assessment: (06/17) Chart reviewed. Pt was discussed during rounds. TPN is discontinued. Visited pt in the room. Pt complains of pain from surgical wound. Pt states My stomach pain cause me not want to eat sometimes. Notified RN. Pain meds were given. Pt denies any nausea or vomiting. No other complains at this time. Will continue to monitor and follow. (06/14) Chart reviewed. Pt was discussed during rounds. Per RN, pt had open surgical wound on abdomen. RD rec supplements for wound healing; discussed with RN. During my visit, pt reports tolerance of full liquid diet. TPN is still running. No GI complains noted. Colostomy bag is present . Pt is awake, alert and in no acute distress. Labs reviewed; RD does not suspect any refeeding syndrome at this time. Will continue to monitor and follow. (06/10) Chart reviewed. Pt underwent surgical management of leakage from ileostomy on 06/09. Per RN, pt has been doing well after surgery. No more leakage noted. Visited pt in the room. TPN is still running at 50mL/hr. Labs reviewed; no sign of refeeding syndrome at this time. NGT to suction with dark fluids draining. Pt is awake, alert and in no acute distress. Pt has no GI complain. Will continue to monitor and follow. (06/08) Chart reviewed. Pt was discussed during rounds. Pt is post-op day 7. Pt has had leaking from surgical site for over 3 days. Wound care is following. NPO/ clear liquid x 7 days since admission. TPN has been scheduled to start this evening. Pt denies of N/V or abdominal pain at this time. Ileostomy bag is present. Explained the purpose of TPN to family. Will continue to monitor and follow. (06/03) Chart reviewed. Labs and meds reviewed. 72yo M, who is admitted for elective colon resection in the setting of colon cancer. He underwent the procedure with small-bowel resection and ileostomy on 06/01. Diet has been advanced to clear liquid. During my visit, pr reports eating about the same before coming into the hospital. Pt denies any N/V or abdominal pain at this time. Pt reports of ~5lb weight loss in 4 months, which is ~2.7% in 4 months (insignificant). Pt denies any chewing or swallowing difficulty. Will continue to monitor and follow. Malnutrition Evaluation (06/03/18) The patient does not meet criteria for a specified degree of malnutrition at this time. Will re-evaluate at follow-up as appropriate. Weight loss: ~5lb weight loss in 4 months, which is ~2.7% in 4 months (insignificant) Malnutrition Evaluation (06/08) The patient does not meet criteria for a specified degree of malnutrition at this time. Will re-evaluate at follow-up as appropriate. Energy intake: <75% of estimated energy requirements for >7 days Weight loss: Weight stable since admission Fat loss: None Muscle loss: None Nutrition Prescription (Diet Order): regular diet Estimated Nutritional Needs: Calories: 1440 1600kcal (18-20kcal/kg/d) Weight used : Actual BW Protein : 80-120g (1-1.5g/kg/d) Weight used: Actual BW Diet Adequacy: Not meeting protein needs, not meeting calorie needs Diet Education Needs Assessment: Diet education not indicated. Nutrition Care Level: moderate Nutrition Diagnosis: Inadequate oral intake related to current medical status as evidenced by poor PO intake. Goal: Patient will meet 75-100% of estimated needs by follow up Progress: Not progressing Interventions: Diet, Prescription medications, Commercial foods, Multivitamin/mineral supplement therapy Monitoring/Evaluation: Total energy intake, Total protein intake, Prescription medication, diet, Supplements, Weight change Signed: Smiley Bacon MS, RD, LD
--- NOTE | 2018-06-17 19:48 | NUR ---
Vanc trough was reported to Dr. Zafar, the okay was given to continue
[2018-06-18] VITALS (9 sets, daily range): BP systolic 132–173; BP diastolic 62–74
[2018-06-18] MEDS: PIPER-TAZ 3.375 GM 50 ML IV SCH ×4 (00:30→18:37)
[2018-06-18] MEDS: METRONIDAZOLE 500MG/NS 100ML 100 ML IV SCH ×4 (02:39→20:51)
[2018-06-18] MEDS: HYDROCODONE/APAP 7.5MG-325MG 1 EA TAB PO PRN ×4 (05:20→22:53)
[2018-06-18] MEDS: VANCOMYCIN 1GM/NS 250 ML 250 ML IV SCH ×2 (05:39→18:37)
[2018-06-18] MEDS: INSULIN REGULAR, HUMAN 100 UNIT/1 ML 3ML VIAL SQ SCH (07:30)
[2018-06-18 07:31] LABS: HEMATOCRIT 24.8 % (38.2-49.6); HEMOGLOBIN 7.3 g/dL (14.0-18.0)
--- NOTE | 2018-06-18 07:31 | NUR ---
IM- Progress Note O/N; no events REVIEW OF SYSTEMS: Denies any dizziness, chest pain. Denies any fever, chills or sweats. Denies any nausea, vomiting, headache, vision changes, back pain. PHYSICAL EXAMINATION VITAL SIGNS: Reviewed. GENERAL: A tired-appearing man resting in bed. HEENT: Anicteric. CARDIOVASCULAR: Normal S1 and S2. LUNGS: Moderate breath sounds. ABDOMEN: SADI drain; Soft and nondistended. He has a midline dressing in place clean and dry. He has right-sided ileostomy in place with pink appearing mucosa. EXTREMITIES: No edema or calf tenderness. NEUROLOGICAL: He is alert and oriented times 3. Moves all extremities. SKIN: Dry. PSYCHIATRIC: Normal affect. LABS: Reviewed. MEDICATIONS: Reviewed. ASSESSMENT: This is a 72-year-old man with: 1. Colon cancer: Status post small-bowel resection and ileostomy placement. 2. Severe microcytic anemia. 3. Acute kidney injury likely secondary to acute tubular necrosis. 4. Diabetes mellitus, type 2. 5. Cigarette use. 6. Coronary artery disease. 7. Diabetic vascular disease. 8. Elevated CEA of 6.6. PLAN 1. He is status post 2 units of packed red blood cell transfusion. His hemoglobin is stable. Will give 3 additional units now. 2. He is status post surgical management. He needs to follow up with his oncologist outpatient. 3. Rehydrate the patient with IV fluids. 4. Continue antibiotics empirically of cefoxitin. 5. Use SCD for DVT prophylaxis. Will add IV PPI q.12 h. 6. Will obtain H and H later today at 4 p.m. 7. Continue Miles at this time. 8. Will keep in the ICU and monitor closely today. Critical care time more than 35 minutes. 06/04 Hba1c 5.3; Add iron supplement; check BMP 06/05 check H/H; Leakage from Sx site- 06/06 monitor; re-eval in am; no pain; check labs in am. d/w family at bedside. 06/07 supportive care; 06/08 continued care; liq diet; may need TPN. 06/09 cont supportive care; replace K using IV 06/10 surgical mgmt of leak; SADI drain and NGT in place; 06/11 hypocalcemia- replace; 06/12 check lytes; 06/13 doing ok; NGT out; on TPN. SADI drain in place. 06/14 Enterococcus faecalis and Enterobacter cloacae infection of abdominal wound- continue zosyn. Nutritional support. Needs continued wound care and nutrition; SNF may not be feasible this time; D/W DrGelber; 06/15 check electrolytes; cont LWC; d/w family at bedside; 06/16 Hb continues to fall, now 7.7, will tranfuse if <7; IV access for IV abx. 06/17 check vanco trough before 3rd dose; Wound also infected with E.coli and Yeast; start fluconazole; cont LWC and PT. d/c planning; 06/08 check H/H. doing better; d/c planning; Rip Zafar MD, PhD.
--- NOTE | 2018-06-18 07:43 | NUR ---
Rcvd patient in report this am. Patient is awake in bed at this time. No s/s of distress noted
--- NOTE | 2018-06-18 08:23 | NUR ---
DAUGHTER JOSE CHOSE [facility] CHO[facility] LETTER SIGNED AND ON [facility] [employer]IC[employer] FAXED TO [facility] AT [phone] CONFIRMATION REC'D PLAN DC WHEN APPROVED
[2018-06-18] MEDS: PANTOPRAZOLE 40 MG 10ML VIAL IV SCH ×2 (08:56→20:51)
[2018-06-18] MEDS: FERROUS SULFATE 325 MG TAB PO SCH ×2 (08:56→17:43)
[2018-06-18] MEDS: SODIUM CHLORIDE 0.9% 1000ML 1,000 ML IV SCH ×2 (08:56→17:41)
[2018-06-18] MEDS ORDERED: SODIUM CHLORIDE 0.9% 250ML 250 ML IV ONE (09:30)
[2018-06-18] MEDS: FLUCONAZOLE 100 MG/NS 50 ML 50 ML IV SCH (10:06)
--- NOTE | 2018-06-18 13:42 | NUR ---
Dressing changed to abdomen. Cleansed area with normal saline, applied wet to dry gauze, and covered. Patient tolerated well. No s/s of distress noted. Minimal amount of drainage noted on old dressing.
[2018-06-18] MEDS ORDERED: SODIUM CHLORIDE 0.9% 250ML 250 ML ONE ×2 (15:52→23:07)
--- NOTE | 2018-06-18 19:15 | NUR ---
received patient in bed, aaox3, denies pain. family members at bedside. drsg c/d/i. no needs voiced at this time. encouraged to call for help. call light within easy reach. will continue to monitor the patient closely.
--- NOTE | 2018-06-18 23:10 | NUR ---
2nd unit of orders blood started, remained with patient for first 15min. tolerated well. no adverse reactions noted. will continue to monitor the patient closely. call light remains within easy reach.
--- NOTE | 2018-06-18 23:45 | NUR ---
drsg to abd changed per orders, minimal drainage to old drsg. patient tolerated change well.
[2018-06-19] VITALS: BP 141/67
--- NOTE | 2018-06-19 00:59 | NUR ---
scheduled 0000 dose of zosyn delayed due to blood transfusing.
[2018-06-19] MEDS: PIPER-TAZ 3.375 GM 50 ML IV SCH ×3 (01:38→12:03)
[2018-06-19] MEDS: METRONIDAZOLE 500MG/NS 100ML 100 ML IV SCH ×2 (02:20→08:37)
[2018-06-19] MEDS: SODIUM CHLORIDE 0.9% 1000ML 1,000 ML IV SCH (03:41)
[2018-06-19 04:00] VITALS: BP 146/69
[2018-06-19 05:47] LABS: BASOPHILS % 0.2 % (0.0-1.0); EOSINOPHILS # (AUTO) 0.1 (0.0-0.4); EOSINOPHILS % 0.8 % (0.0-6.0); HEMATOCRIT 28.4 % (38.2-49.6); HEMOGLOBIN 8.8 g/dL (14.0-18.0); MEAN CORPUSCULAR HEMOGLOBIN 24.9 pg (28-32); MEAN CORPUSCULAR VOLUME 80.5 fL (81-99); MONOCYTES # (AUTO) 0.7 (0.2-0.8); MONOCYTES % 5.6 % (4.4-11.3); NEUTROPHILS # (AUTO) 10.2 (2.1-6.9); NEUTROPHILS % 84.7 % (38.7-80.0); PLATELET COUNT 549 x10e3/uL (140-360); RED BLOOD COUNT 3.53 x10e6/uL (4.3-5.7); RED CELL DISTRIBUTION WIDTH 25.8 % (11.7-14.4)
[2018-06-19 06:20] LABS: ALBUMIN 1.4 g/dL (3.5-5.0); ALBUMIN/GLOBULIN RATIO 0.4 (0.8-2.0); ALKALINE PHOSPHATASE 98 IU/L (40-150); ANION GAP 10.6 mmol/L (8-16); BLOOD UREA NITROGEN 7 mg/dL (7-26); BUN/CREATININE RATIO 10 (6-25); CALCIUM 7.4 mg/dL (8.4-10.2); CARBON DIOXIDE 22 mmol/L (22-29); CHLORIDE 106 mmol/L (98-107); CREATININE, SERUM 0.72 mg/dL (0.72-1.25); EST GLOMERULAR FILTRATION RATE > 60 ML/MIN (60-); GLUCOSE 84 mg/dL (74-118); POTASSIUM 3.6 mmol/L (3.5-5.1); SODIUM 135 mmol/L (136-145)
[2018-06-19 06:25] LABS: ALANINE AMINOTRANSFERASE < 6 IU/L (0-55)
[2018-06-19 06:26] LABS: ANISOCYTOSIS MODERATE; LYMPHOCYTES % (MANUAL) 7 % (19-48); MONOCYTES % (MANUAL) 5 % (3.4-9.0); NEUTROPHILS % (MANUAL) 88 % (40-74); PLATELET ESTIMATE MODERATELY INCREASED; PLATELET MORPHOLOGY COMMENT NORMAL; RBC MORPHOLOGY COMMENT ABNORMAL
[2018-06-19 06:27] LABS: MICROCYTOSIS SLIGHT
--- NOTE | 2018-06-19 06:39 | NUR ---
dr. Zafar aware of critical vanc. trough, ordered to continue giving scheduled doses.
[2018-06-19] MEDS: VANCOMYCIN 1GM/NS 250 ML 250 ML IV SCH (06:49)
--- NOTE | 2018-06-19 07:07 | NUR ---
IM- Progress Note O/N; no events REVIEW OF SYSTEMS: Denies any dizziness, chest pain. Denies any fever, chills or sweats. Denies any nausea, vomiting, headache, vision changes, back pain. PHYSICAL EXAMINATION VITAL SIGNS: Reviewed. GENERAL: A tired-appearing man resting in bed. HEENT: Anicteric. CARDIOVASCULAR: Normal S1 and S2. LUNGS: Moderate breath sounds. ABDOMEN: SADI drain; Soft and nondistended. He has a midline dressing in place clean and dry. He has right-sided ileostomy in place with pink appearing mucosa. EXTREMITIES: No edema or calf tenderness. NEUROLOGICAL: He is alert and oriented times 3. Moves all extremities. SKIN: Dry. PSYCHIATRIC: Normal affect. LABS: Reviewed. MEDICATIONS: Reviewed. ASSESSMENT: This is a 72-year-old man with: 1. Colon cancer: Status post small-bowel resection and ileostomy placement. 2. Severe microcytic anemia. 3. Acute kidney injury likely secondary to acute tubular necrosis. 4. Diabetes mellitus, type 2. 5. Cigarette use. 6. Coronary artery disease. 7. Diabetic vascular disease. 8. Elevated CEA of 6.6. PLAN 1. He is status post 2 units of packed red blood cell transfusion. His hemoglobin is stable. Will give 3 additional units now. 2. He is status post surgical management. He needs to follow up with his oncologist outpatient. 3. Rehydrate the patient with IV fluids. 4. Continue antibiotics empirically of cefoxitin. 5. Use SCD for DVT prophylaxis. Will add IV PPI q.12 h. 6. Will obtain H and H later today at 4 p.m. 7. Continue Miles at this time. 8. Will keep in the ICU and monitor closely today. Critical care time more than 35 minutes. 06/04 Hba1c 5.3; Add iron supplement; check BMP 06/05 check H/H; Leakage from Sx site- 06/06 monitor; re-eval in am; no pain; check labs in am. d/w family at bedside. 06/07 supportive care; 06/08 continued care; liq diet; may need TPN. 06/09 cont supportive care; replace K using IV 06/10 surgical mgmt of leak; SADI drain and NGT in place; 06/11 hypocalcemia- replace; 06/12 check lytes; 06/13 doing ok; NGT out; on TPN. SADI drain in place. 06/14 Enterococcus faecalis and Enterobacter cloacae infection of abdominal wound- continue zosyn. Nutritional support. Needs continued wound care and nutrition; SNF may not be feasible this time; D/W DrGelber; 06/15 check electrolytes; cont LWC; d/w family at bedside; 06/16 Hb continues to fall, now 7.7, will tranfuse if <7; IV access for IV abx. 06/17 check vanco trough before 3rd dose; Wound also infected with E.coli and Yeast; start fluconazole; cont LWC and PT. d/c planning; 06/18 check H/H. doing better; d/c planning; 06/19 s/p 2U PRBC; vanco trough 14. doing well; cont PT and nutrition; Wound +Enterobacter/Enterococcus/E.coli/Yesast- cont abx+antifungal; d/c planning Rip Zafar MD, PhD.
[2018-06-19] MEDS: HYDROCODONE/APAP 7.5MG-325MG 1 EA TAB PO PRN (07:28)
--- NOTE | 2018-06-19 07:45 | NUR ---
Rcvd patient in report this am. Patient is asleep in bed at this time. No s/s of distress noted
[2018-06-19] MEDS: FERROUS SULFATE 325 MG TAB PO SCH (08:37)
[2018-06-19] MEDS: PANTOPRAZOLE 40 MG 10ML VIAL IV SCH (08:37)
[2018-06-19 08:45] VITALS: BP 129/87
[2018-06-19 09:11] VITALS: BP 141/80
[2018-06-19] MEDS ORDERED: CYCLOBENZAPRINE HCL 10 MG TAB PO PRN (09:30)
[2018-06-19] MEDS ORDERED: HYDROCODONE/APAP 7.5MG-325MG 1 EA TAB PO PRN (09:45)
[2018-06-19 09:56] VITALS: BP 141/80
--- NOTE | 2018-06-19 10:35 | NUR ---
Patient is AAOx3. Patient lung simental clear to auscultation. Bowel sounds present x4. right sided ileostomy in place with loose stools. Right PICC line in place. Left subclavian port a cath. PRN pain meds given. No s/s of distress noted. Patient has a surgical midline wound with dressing clean and dry. Will change prior to transport.
[2018-06-19] MEDS: FLUCONAZOLE 100 MG/NS 50 ML 50 ML IV SCH (11:00)
[2018-06-19 13:03] VITALS: BP 155/73
--- NOTE | 2018-06-19 13:34 | NUR ---
Removed Port a cath access to left subclavian. Needle tip intact. Patient tolerated well. No c/o pain. Flushed and packed with heparin
--- NOTE | 2018-06-19 13:36 | NUR ---
Dressing changed to abdomen. Cleansed area with normal saline, applied sterile wet to dry gauze. Noted to have increased drainage. Covered with wet to dry gauze and covered with tape.
--- NOTE | 2018-06-19 13:38 | NUR ---
Report called to [facility] and spoke with NURY Beal.
--- NOTE | 2018-06-19 13:45 | NUR ---
Report called to [facility] at [facility].
[2018-06-19] MEDS ORDERED: GABAPENTIN 100 MG CAP PO SCH (15:00)
--- NOTE | 2018-06-19 15:10 | NUR ---
[facility] here at facility to transport patient to [facility]. Family at bedside
--- NOTE | 2018-06-19 15:12 | NUR ---
Patient discharged to [facility]. Patient transported via [facility].
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
== END 2018-06-19 15:11 | DRG 329 ==
LOC: OR 07:53 → PACU V 15:09 → ICU 15:16 → IMCU 06-03 16:26 → MED/SURG 06-04 12:30
PROVIDERS: ADMIT Surgery; ATTEND Surgery
PROC: 0WJG0ZZ Inspection of Peritoneal Cavity, Open Approach (ICD-10-PCS; 2018-06-01)
PROC: 0D1B0Z4 Bypass Ileum to Cutaneous, Open Approach (ICD-10-PCS; 2018-06-01)
PROC: 0T9B80Z Drainage of Bladder with Drainage Device, Via Natural or Artificial Opening Endoscopic (ICD-10-PCS; 2018-06-01)
PROC: 30233N1 Transfusion of Nonautologous Red Blood Cells into Peripheral Vein, Percutaneous Approach (ICD-10-PCS; 2018-06-01)
PROC: BT1B1ZZ Fluoroscopy of Bladder and Urethra using Low Osmolar Contrast (ICD-10-PCS; principal; 2018-06-01 10:30)
PROC: 0DB80ZZ Excision of Small Intestine, Open Approach (ICD-10-PCS; 2018-06-01 10:30)
PROC: 3E0336Z Introduction of Nutritional Substance into Peripheral Vein, Percutaneous Approach (ICD-10-PCS; 2018-06-08)
PROC: 0DQ80ZZ Repair Small Intestine, Open Approach (ICD-10-PCS; 2018-06-09)
PROC: 0JB80ZZ Excision of Abdomen Subcutaneous Tissue and Fascia, Open Approach (ICD-10-PCS; 2018-06-09)
PROC: 02HV33Z Insertion of Infusion Device into Superior Vena Cava, Percutaneous Approach (ICD-10-PCS; 2018-06-16)
PROC: B548ZZA Ultrasonography of Superior Vena Cava, Guidance (ICD-10-PCS; 2018-06-16)
DX: C19 Malignant neoplasm of rectosigmoid junction (principal); N17.0 Acute kidney failure with tubular necrosis; K63.1 Perforation of intestine (nontraumatic); K65.1 Peritoneal abscess; N13.8 Other obstructive and reflux uropathy; T81.83XA Persistent postprocedural fistula, initial encounter; K63.2 Fistula of intestine; T81.43XA Infection following a procedure, organ and space surgical site, initial encounter; K56.7 Ileus, unspecified; B37.89 Other sites of candidiasis; D50.9 Iron deficiency anemia, unspecified; Z72.0 Tobacco use; I25.10 Atherosclerotic heart disease of native coronary artery without angina pectoris; Z95.1 Presence of aortocoronary bypass graft; N40.1 Benign prostatic hyperplasia with lower urinary tract symptoms; E11.42 Type 2 diabetes mellitus with diabetic polyneuropathy; E83.51 Hypocalcemia; B95.2 Enterococcus as the cause of diseases classified elsewhere; B96.89 Other specified bacterial agents as the cause of diseases classified elsewhere; B96.20 Unspecified Escherichia coli [E. coli] as the cause of diseases classified elsewhere
CPT/HCPCS: 36415; 36569; 71045; 74018; 74160; 74420; 80048; 80053; 80076; 80202; 82330; 82378; 82948; 83036; 83735; 84100; 84134; 84478; 85007; 85014; 85018; 85025; 85027; 86850; 86900; 86920; 87071; 87075; 87186; 87205; 88307; 93005; 96361; 96365; 96366; 96374; 96375; 97139; J0610; J0694; J1100; J1450; J1642; J2001; J2250; J2270; J2370; J2405; J2543; J3370; J3480; J7030; J7050; P9016; Q9967